=== PATIENT | female | born 1955 | race Caucasian/White ===

== ENCOUNTER 2021-12-08 02:35 | Emergency (ER) | payer OTHER ==
[2021-12-08 04:14] LABS: Absolute Lymphocytes (CBC) 1.1 K/uL (0.7-4.9); Hematocrit 39.1 % (36.0-45.0); MPV 7.6 fL (7.6-11.3); RBC Red Blood Cell Count 3.95 M/uL (3.86-4.86)
[2021-12-08] MEDS ORDERED: LEVALBUTEROL 1.25 MG/3 ML NEB ONE (04:16)
[2021-12-08 04:21] LABS: Urine Blood Negative (Negative); Urine Glucose Negative (Negative); Urine Protein Negative (Negative); Urine Specific Gravity <=1.005 (1.005-1.030)
[2021-12-08] MEDS ORDERED: cloNIDine HCL 0.1 MG TAB ONE (04:25)
[2021-12-08 04:30] LABS: Potassium 4.1 mmol/L (3.5-5.1); Troponin High Sensitivity 20.4 pg/mL (<58.9)
[2021-12-08 04:52] LABS: Urine Bacteria <20 /HPF (<20); Urine RBC <5 /HPF (NONE SEEN); Urine Urothelial Cells <5 /HPF (NONE SEEN)
--- NOTE | 2021-12-08 06:20 | EDPHYS ---
Physician Documentation [facility] Name: Hillary Simms Age: 65 yrs Sex: Female : 1955 Arrival Date: 12/08/2021 Time: 02:38 Bed 5 Private MD: ED Physician Juan Carlos Gomez HPI: 12/08 03:50 This 65 yrs old Female presents to ER via Ambulatory with complaints of headache, rn Breathing Difficulty, COPD Exacerbation. 03:52 Pt reports headache, malaise, chest pain, cough, sob for 3 days. Reports just got rn insurance back and has not been on her inhalers for 5 years. No fever. + productive cough. No abd pain. No vomiting. + diarrhea. No sick contacts. . Onset: The symptoms/episode began/occurred 3 day(s) ago. Severity of symptoms: At their worst the symptoms were mild in the emergency department the symptoms are unchanged. It is unknown whether or not the patient has had similar symptoms in the past. The patient has not recently seen a physician. Historical: - Allergies: 03:03 PENICILLINS; lp1 - Home Meds: 03:03 None [Active]; lp1 - PMHx: 03:03 GI Bleed; Hypertension; COPD; lp1 - PSHx: 03:03 Tubal Ligation; lp1 - Social history:: Smoking status: Patient reports the use of cigarette tobacco products, denies chronic smoking, but will smoke occasionally. - Family history:: not pertinent. - Hospitalizations: : No recent hospitalization is reported. ROS: 03:52 Constitutional: Negative for fever, chills, and weight loss, Eyes: Negative for injury, rn pain, redness, and discharge, Neck: Negative for injury, pain, and swelling, Cardiovascular: Negative for palpitations, and edema, Respiratory: + sob and cough Abdomen/GI: Negative for abdominal pain, vomiting, and constipation, Back: Negative for injury and pain, : + "warm urine" MS/Extremity: Negative for injury and deformity, Skin: Negative for injury, rash, and discoloration, Neuro: Negative for focal weakness, numbness, tingling, and seizure. Exam: 03:52 Constitutional: This is a well developed, well nourished patient who is awake, alert, rn and in no acute distress. Head/Face: Normocephalic, atraumatic. Eyes: Periorbital areas with no swelling, redness, or edema. Cardiovascular: Regular rate and rhythm. No pulse deficits. Respiratory: No increased work of breathing, no retractions or nasal flaring. Abdomen/GI: Soft, non-tender Skin: Warm, dry with normal turgor. Normal color with no rashes, no lesions, and no evidence of cellulitis. MS/ Extremity: Pulses equal, no cyanosis. Neurovascular intact. Full, normal range of motion. Equal circumference. Neuro: Awake and alert, GCS 15, oriented to person, place, time, and situation. Cranial nerves II-XII grossly intact. Motor strength 5/5 in all extremities. Sensory grossly intact. Cerebellar exam normal. Normal gait. Vital Signs: 03:01 BP 185 / 127 LA; Pulse 94; Resp 18; Temp 98.1(O); Pulse Ox 99% on R/A; Weight 44.45 kg lp1 (R); Height 5 ft. 4 in. (162.56 cm); Pain 7/10; 03:03 BP 190 / 125 RA; lp1 04:00 BP 184 / 127; Pulse 81; Resp 18 S; Pulse Ox 100% on R/A; lg3 04:25 BP 175 / 118; Pulse 81; Resp 17 S; Pulse Ox 99% on R/A; lg3 05:06 BP 116 / 64; Pulse 63; Resp 17 S; Pulse Ox 100% on R/A; lg3 06:30 BP 122 / 78; Pulse 73; Resp 18 S; Pulse Ox 100% on R/A; lg3 03:01 Body Mass Index 16.82 (44.45 kg, 162.56 cm) lp1 MDM: 02:45 Patient medically screened. rn 06:17 Differential Diagnosis viral syndrome, HTN, headache, COPD exacerbation. Data reviewed: rn vital signs, nurses notes, lab test result(s), EKG, radiologic studies, CT scan, plain films, and as a result, I will discharge patient. Counseling: I had a detailed discussion with the patient and/or guardian regarding: the historical points, exam findings, and any diagnostic results supporting the discharge/admit diagnosis, lab results, radiology results, the need for outpatient follow up, to return to the emergency department if symptoms worsen or persist or if there are any questions or concerns that arise at home. Response to treatment: the patient's symptoms have markedly improved after treatment, and as a result, I will discharge patient. Special discussion: I discussed with the patient/guardian in detail that at this point there is no indication for admission to the hospital. It is understood, however, that if the symptoms persist or worsen the patient needs to return immediately for re-evaluation. Based on the history and exam findings, there is no indication for further emergent testing or inpatient evaluation. I discussed with the patient/guardian the need to see the primary care provider for further evaluation of the symptoms. ED course: NO acute findings on CT head/aorta, CXR clear, COVID/FLu neg, improved BP, ambulatory to bathroom on her own and normal neuro exam. Will dc home with PCP f/u for BP management. No findings to suggest end-organ damage. Will refill COPD medication and direct her to take BP log.. 12/08 03:19 Order name: CBC with Diff; Complete Time: 04:30 rn 12/08 03:19 Order name: Basic Metabolic Panel; Complete Time: 04:30 rn 12/08 03:19 Order name: D-Dimer; Complete Time: 04:30 rn 12/08 03:19 Order name: Troponin High Sensitivity; Complete Time: 04:30 rn 12/08 03:19 Order name: Flu; Complete Time: 05:13 rn 12/08 03:19 Order name: CT Head Brain wo Cont rn 12/08 03:19 Order name: XRAY Chest (1 view) rn 12/08 03:19 Order name: Urine Microscopic Only; Complete Time: 05:13 rn 12/08 04:11 Order name: SARS-COV-2 RT PCR; Complete Time: 05:13 EDSD 12/08 04:21 Order name: Urine Dipstick-Ancillary; Complete Time: 04:30 EDMS 12/08 04:31 Order name: CT Aorta for Dissection rn 12/08 03:19 Order name: IV Start; Complete Time: 03:59 rn 12/08 03:19 Order name: EKG; Complete Time: 03:20 rn 12/08 03:19 Order name: EKG - Nurse/Tech; Complete Time: 03:59 rn 12/08 03:19 Order name: Cardiac monitoring; Complete Time: 03:59 rn 12/08 03:19 Order name: O2 Sat Monitoring; Complete Time: 03:59 rn 12/08 03:19 Order name: Urine Dipstick-Ancillary (obtain specimen); Complete Time: 04:22 rn Administered Medications: 04:15 Drug: Xopenex (levalbuterol) 1.25 mg Route: Inhalation; al4 04:25 Drug: cloNIDine 0.1 mg Route: PO; lg3 04:25 Follow up: Response: No adverse reaction lg3 Disposition Summary: 12/08/21 06:20 Discharge Ordered Location: Home rn Problem: an acute exacerbation rn Symptoms: have improved rn Condition: Stable rn Diagnosis - COPD/ Chronic obstructive pulmonary disease with (acute) exacerbation rn - Essential (primary) hypertension rn - Headache rn Followup: rn - With: Private Physician - When: As needed - Reason: Recheck today's complaints, Re-evaluation by your physician Discharge Instructions: - Discharge Summary Sheet rn - General Headache Without Cause rn - Hypertension, Adult rn - Chronic Obstructive Pulmonary Disease Exacerbation rn Forms: - Medication Reconciliation Form rn - Thank You Letter rn - Antibiotic international guest coordinator - Prescription Opioid Use rn Prescriptions: - albuterol sulfate 90 mcg/actuation Inhalation HFA aerosol inhaler - inhale 2 puff by INHALATION route every 4-6 hours; 1 Pump; Refills: 0, Product rn Selection Permitted - Prednisone 20 mg Oral Tablet - take 3 tablets by ORAL route once daily for 5 days; 15 tablet; Refills: 0, rn Product Selection Permitted Signatures: Dispatcher [employer] EDMS Juan Carlos Gomez MD MD rn Pena, Laura RN RN lp1 Sirena De Guzman, RN RN lg3 Vishnu Tate4 Corrections: (The following items were deleted from the chart) 04:04 03:19 SARS-COV-2 RT PCR+MOL.LAB.BRZ ordered. EDMS EDMS 04:04 03:20 Influenza Screen (A \\T\\ B)+BA.LAB.BRZ ordered. EDMS EDMS 04:11 04:04 COVID-19/FLU A+B ordered. EDMS EDMS
--- NOTE | 2021-12-08 06:20 | ER ---
Nurse's Notes [facility] Name: Hillary Simms Age: 65 yrs Sex: Female : 1955 Arrival Date: 12/08/2021 Time: 02:38 Bed 5 Private MD: Diagnosis: COPD/ Chronic obstructive pulmonary disease with (acute) exacerbation;Essential (primary) hypertension;Headache Presentation: 12/08 03:01 Chief complaint: Patient states: "I have COPD and I have been short of breath and I lp1 haven't been able to hold anything down for 3 days and I'm having some chest pain, and I think I may need a blood transfusion"; Reports unable to have inhaler for COPD due to financial reasons. Coronavirus screen: At this time, the client does not indicate any symptoms associated with coronavirus-19. Ebola Screen: No symptoms or risks identified at this time. Initial Sepsis Screen: Does the patient meet any 2 criteria? No. Patient's initial sepsis screen is negative. Does the patient have a suspected source of infection? No. Patient's initial sepsis screen is negative. Risk Assessment: Do you want to hurt yourself or someone else? Patient reports no desire to harm self or others. Onset of symptoms was December 08, 2021. 03:01 Method Of Arrival: Ambulatory lp1 03:01 Acuity: PREETI 2 lp1 Triage Assessment: 06:32 Respiratory: the patient has mild shortness of breath. lg3 Historical: - Allergies: 03:03 PENICILLINS; lp1 - Home Meds: 03:03 None [Active]; lp1 - PMHx: 03:03 GI Bleed; Hypertension; COPD; lp1 - PSHx: 03:03 Tubal Ligation; lp1 - Social history:: Smoking status: Patient reports the use of cigarette tobacco products, denies chronic smoking, but will smoke occasionally. - Family history:: not pertinent. - Hospitalizations: : No recent hospitalization is reported. Screenin:06 Abuse screen: Denies threats or abuse. Denies injuries from another. Nutritional lp1 screening: No deficits noted. Tuberculosis screening: No symptoms or risk factors identified. Fall Risk None identified. Assessment: 04:14 General: Appears in no apparent distress. comfortable, Behavior is cooperative, lg3 anxious. Pain: Denies pain. Neuro: No deficits noted. Garza Agitation-Sedation Scale (RASS): 0 - Alert and Calm Level of Consciousness is awake, alert, obeys commands, Oriented to person, place, time, situation. Cardiovascular: No deficits noted. Reports nausea, shortness of breath. Cardiovascular: Denies chest pain. Respiratory: No deficits noted. Reports shortness of breath Airway is patent Trachea midline Respiratory effort is even, unlabored, Respiratory pattern is regular, symmetrical, Breath sounds are clear bilaterally. GI: Reports nausea. : No deficits noted. No signs and/or symptoms were reported regarding the genitourinary system. EENT: No deficits noted. No signs and/or symptoms were reported regarding the EENT system. Derm: No deficits noted. No signs and/or symptoms reported regarding the dermatologic system. Skin is intact, is healthy with good turgor, Skin is dry, Skin is pink, warm \\T\\ dry. Musculoskeletal: No deficits noted. No signs and/or symptoms reported regarding the musculoskeletal system. Circulation, motion, and sensation intact. Capillary refill < 3 seconds, Range of motion: intact in all extremities. 05:06 Reassessment: Patient appears in no apparent distress at this time. No changes from lg3 previously documented assessment. Patient and/or family updated on plan of care and expected duration. Pain level reassessed. Patient is alert, oriented x 3, equal unlabored respirations, skin warm/dry/pink. 06:30 Reassessment: Patient appears in no apparent distress at this time. No changes from lg3 previously documented assessment. Patient and/or family updated on plan of care and expected duration. Pain level reassessed. Patient is alert, oriented x 3, equal unlabored respirations, skin warm/dry/pink. Patient denies pain at this time. Patient states feeling better. Patient states symptoms have improved. 06:31 Cardiovascular: Rhythm is sinus rhythm. lg3 Vital Signs: 03:01 BP 185 / 127 LA; Pulse 94; Resp 18; Temp 98.1(O); Pulse Ox 99% on R/A; Weight 44.45 kg lp1 (R); Height 5 ft. 4 in. (162.56 cm); Pain 7/10; 03:03 BP 190 / 125 RA; lp1 04:00 BP 184 / 127; Pulse 81; Resp 18 S; Pulse Ox 100% on R/A; lg3 04:25 BP 175 / 118; Pulse 81; Resp 17 S; Pulse Ox 99% on R/A; lg3 05:06 BP 116 / 64; Pulse 63; Resp 17 S; Pulse Ox 100% on R/A; lg3 06:30 BP 122 / 78; Pulse 73; Resp 18 S; Pulse Ox 100% on R/A; lg3 03:01 Body Mass Index 16.82 (44.45 kg, 162.56 cm) lp1 ED Course: 02:38 Patient arrived in ED. bp1 02:45 Juan Carlos Gomez MD is Attending Physician. rn 02:54 Sirena De Guzman, LM is Primary Nurse. lg3 03:03 Triage completed. lp1 03:03 Arm band placed on. lp1 03:36 XRAY Chest (1 view) In Process Unspecified. EDMS 03:40 CT Head Brain wo Cont In Process Unspecified. EDMS 03:59 Troponin High Sensitivity Sent. lg3 03:59 D-Dimer Sent. lg3 03:59 Basic Metabolic Panel Sent. lg3 03:59 CBC with Diff Sent. lg3 03:59 Inserted saline lock: 20 gauge in right antecubital area, using aseptic technique. lg3 Blood collected. 04:14 Patient has correct armband on for positive identification. Placed in gown. Bed in low lg3 position. Call light in reach. Side rails up X 1. Client placed on continuous cardiac and pulse oximetry monitoring. NIBP monitoring applied. rehab services aide on. Door closed. Noise minimized. Warm blanket given. 04:22 Urine Microscopic Only Sent. al4 04:53 CT Aorta for Dissection In Process Unspecified. EDMS 06:31 No provider procedures requiring assistance completed. IV discontinued, intact, lg3 bleeding controlled, No redness/swelling at site. Pressure dressing applied. Administered Medications: 04:15 Drug: Xopenex (levalbuterol) 1.25 mg Route: Inhalation; al4 04:25 Drug: cloNIDine 0.1 mg Route: PO; lg3 04:25 Follow up: Response: No adverse reaction lg3 Outcome: 06:20 Discharge ordered by . rn 06:31 Discharged to home ambulatory. lg3 06:31 Condition: stable 06:31 Discharge instructions given to patient, Instructed on discharge instructions, medication usage, Demonstrated understanding of instructions, medications, Prescriptions given X 2. 06:32 Patient left the ED. lg3 Signatures: Dispatcher [employer] EDMS Juan Carlos Gomez MD MD rn Pena, Laura, RN RN lp1 Sirena De Guzman RN RN lg3 Vicki Barrios Alexis al4 Corrections: (The following items were deleted from the chart) 04:04 03:59 Influenza Screen (A \\T\\ B)+BA.LAB.BRZ drawn and sent. lg3 EDMS 04:04 03:59 SARS-COV-2 RT PCR+MOL.LAB.BRZ drawn and sent. lg3 EDMS
[2021-12-08 06:37] VITALS: TEMP 98.1
[2021-12-08 06:42] VITALS: O2SAT 100
[2021-12-08 06:44] VITALS: BP 122/78
--- NOTE | 2021-12-08 10:18 | EKG ---
Test Date: 2021-12-08 Test Time: 03:50:03 Metallography Teacher: KOKI MEASUREMENT RESULTS: Intervals: Rate: 81 SC: 166 QRSD: 88 QT: 432 QTc: 501 [place]: P: 42 SC: 166 QRS: 31 T: 75 INTERPRETIVE STATEMENTS: Normal sinus rhythm Possible Left atrial enlargement Left ventricular hypertrophy Nonspecific T wave abnormality Prolonged QT Abnormal ECG Compared to ECG 01/20/2014 07:53:11 Left ventricular hypertrophy now present T-wave abnormality now present Prolonged QT interval now present Electronically Signed On 12-08-21 10:17:22 CDT by Matty Robertson
--- NOTE | 2021-12-08 10:18 | EKG ---
Test Date: 2021-12-08 Test Time: 03:51:11 Coffee Roaster: KOKI MEASUREMENT RESULTS: Intervals: Rate: 79 MI: 170 QRSD: 88 QT: 434 QTc: 497 [place]: P: 42 MI: 170 QRS: 25 T: 80 INTERPRETIVE STATEMENTS: Normal sinus rhythm Voltage criteria for left ventricular hypertrophy Prolonged QT Abnormal ECG Compared to ECG 12/08/2021 03:50:03 T-wave abnormality no longer present Electronically Signed On 12-08-21 10:17:21 CDT by Matty Robertson
--- NOTE | 2021-12-08 15:15 | RAD REPORT ---
EXAM DESCRIPTION: CT - Head Brain Wo Cont - 12/08/2021 6:32 am CLINICAL HISTORY: Headache, new or worsening COMPARISON: None. TECHNIQUE: CT HEAD WITHOUT IV CONTRAST on 12/08/2021 3:19 AM CDT This exam was performed according to our departmental dose-optimization program, which includes autom ated exposure control, adjustment of the mA and/or kV according to patient size and/or use of iterati ve reconstruction technique. FINDINGS: There is no acute hemorrhage, mass effect or midline shift. Trevizo-white differentiation is preserved. There is no hydrocephalus. There is no significant volume loss for age. The calvarium is intact. Orbits and globes are unremarkable. The paranasal sinuses are clear. Mastoid air cells are clear. IMPRESSION: No acute intracranial findings. Electronically signed by: Ruel Johnson MD 12/08/2021 3:59 AM CDT Due to temporary technical issues with the PACS/Fluency reporting system, reports are being signed by the in house radiologists without review as a courtesy to insure prompt reporting. The interpreting radiologist is fully responsible for the content of the report.
--- NOTE | 2021-12-08 15:16 | RAD REPORT ---
EXAM DESCRIPTION: RAD - Chest Single View - 12/08/2021 3:34 am CLINICAL HISTORY: Cough COMPARISON: None. TECHNIQUE: XR CHEST 1 VIEW 12/08/2021 3:19 AM CDT FINDINGS: The heart is mildly enlarged. Lungs are clear without consolidation, atelectasis, mass or edema. There is no pleural effusion. There is no pneumothorax. There are no acute osseous findings. IMPRESSION: Clear lungs. Electronically signed by: Ruel Johnson MD 12/08/2021 3:56 AM CDT Due to temporary technical issues with the PACS/Fluency reporting system, reports are being signed by the in house radiologists without review as a courtesy to insure prompt reporting. The interpreting radiologist is fully responsible for the content of the report.
--- NOTE | 2021-12-08 15:18 | RAD REPORT ---
EXAM DESCRIPTION: CT - Angio Aorta For Dissection - 12/08/2021 6:31 am CLINICAL HISTORY: Chest pain, extreme HTN COMPARISON: None. TECHNIQUE: CT CHEST ABDOMEN PELVIS ANGIOGRAPHY WITH IV CONTRAST on 12/08/2021 4:31 AM CDT. MIPS recon structions were generated. This exam was performed according to our departmental dose-optimization program, which includes autom ated exposure control, adjustment of the mA and/or kV according to patient size and/or use of iterati ve reconstruction technique. FINDINGS: Vascular: The midascending thoracic aorta is dilated at 4.4 cm. There is no dissection. Pu lmonary arteries are poorly opacified with no large central filling defects. Abdominal aorta is moder ately atherosclerotic without aneurysm. Pelvic arteries are patent without aneurysm or occlusion. Chest: The heart is normal in size. There is no pericardial effusion. Intrathoracic lymph nodes are n ot enlarged. There is no pleural effusion, pleural thickening or pneumothorax. Central airways are patent. There i s a 2 mm right apical pulmonary nodule. There is mild upper lung centrilobular emphysema. Abdomen: The liver is normal in appearance. There is no biliary dilatation. Gallbladder is normal in appearance. The pancreas and spleen are normal in appearance. Adrenal glands are normal. Kidneys are mildly atrophic. There is no free air. There is no retroperitoneal adenopathy. Pelvis: There is no bowel obstruction. Urinary bladder is unremarkable. There is no free fluid. Uteru s is normal in size. Appendix is not clearly seen. Skeleton: There are no acute osseous findings. No suspicious bony lesions. IMPRESSION: Mildly dilated mid ascending thoracic aorta without dissection. No large or central pulmonary embolus. Emphysema. 2 mm right solid pulmonary nodule within the upper lobe. A non-contrast Chest CT at 12 months is opti onal. If performed and the nodule is stable at 12 months, no further follow-up is recommended. These guidelines do not apply to immunocompromised patients and patients with cancer. Follow up in pa tients with significant comorbidities as clinically warranted. For lung cancer screening, adhere to L rosanne-RADS guidelines. Reference: Radiology. 2017; 284(1):228-43. Electronically signed by: Ruel Johnson MD 12/08/2021 5:56 AM CDT Due to temporary technical issues with the PACS/Fluency reporting system, reports are being signed by the in house radiologists without review as a courtesy to insure prompt reporting. The interpreting radiologist is fully responsible for the content of the report.
== END 2021-12-08 06:32 | disposition home or self-care (01) ==
LOC: ER 02:35
DX: J44.1 Chronic obstructive pulmonary disease with (acute) exacerbation (principal); I10 Essential (primary) hypertension; F17.210 Nicotine dependence, cigarettes, uncomplicated; Z20.822 Contact with and (suspected) exposure to COVID-19; Z88.0 Allergy status to penicillin
CPT/HCPCS: 93005 ×2; 85025; 80048; 36415; 85379; 84484; 87804 ×2; 70450; 71275; 74175; 71045; U0003; Q9967; 81003; 81015; 99285

== ENCOUNTER → 2023-07-19 | Emergency (ER) | payer OTHER ==
[~2023-07-19] MED LIST: cloNIDine HCL 0.1 MG TAB ONE
--- OUTSIDE RECORDS SUMMARY | 2023-07-19 19:12 | XMS REPORT | Continuity of Care Document ---
Author Name Unknown Address [address] [place] [address] [facility] thconnect Address [address] [place] [address] Care Team Providers Care Color Adviser Name Role Phone TRE MADDOX Attending Clinician Unavailab le Payers Payer Name Policy Type Policy Number Effective Date Expirati on Date Source [facility] MEDICAID ST[employer] [facility] [id number] 2021 00:00:00 Encounters Start Date/Time End Date/Time Encounter Type Admission Type Attending Clinicians Care Facility Care Department Encounter ID Source 2023-08-05 15:00:00 2023-08-05 15:00:00 Outpatient TRE MADDOX [facility] [id number] [facility]
[2023-07-19 20:16] LABS: Absolute Lymphocytes (CBC) 0.7 K/uL (0.7-4.9); Hematocrit 26.9 % (36.0-45.0); Lymphocytes % 8.3 % (15.3-44.8); MCV 97.6 fL (80-100); MPV 7.7 fL (7.6-11.3); Platelets 353 thou/uL (152-406); RBC Red Blood Cell Count 2.76 M/uL (3.86-4.86)
[2023-07-19 20:21] LABS: Protime INR 1.06
[2023-07-19 20:40] LABS: Bilirubin Direct 0.1 mg/dL (0-0.2); Bilirubin Indirect, Calculated 0.2 mg/dL (0.2-0.8); Bilirubin Total 0.3 mg/dL (0.2-1.0); Magnesium 2.2 mg/dL (1.6-2.4); Potassium 4.3 mEq/L (3.5-5.1); Protein, Total 7.4 g/dL (6.4-8.2); Troponin High Sensitivity 7.9 pg/mL (<58.9)
--- NOTE | 2023-07-19 21:17 | RAD REPORT ---
EXAM DESCRIPTION: CT - CTHCSPWOC - 07/19/2023 9:04 pm CLINICAL HISTORY: Trauma, head and neck injury. TRAUMA COMPARISON: Facial Bones W/ Mpr dated 07/19/2023; Head Brain Wo Cont dated 12/08/2021 TECHNIQUE: Axial 5 mm thick images of the head were obtained. Axial 2 mm thick images of the cervical spine were obtained with sagittal and coronal reconstruction images generated and reviewed. All CT scans are performed using dose optimization technique as appropriate and may include automated exposure control or mA/KV adjustment according to patient size. FINDINGS: CT HEAD WITHOUT CONTRAST: No acute hemorrhage, hydrocephalus or extra-axial collection is identified.There is a large area of i ntermediate diminished density seen in the left temporal lobe likely representing subacute infarct. M ild generalized brain atrophy is present. 2 mm [id number] midline shift is identified. The paranasal sinuses and mastoids are clear.Mild vertebral atherosclerosis.The calvarium is intact. CT CERVICAL SPINE WITHOUT CONTRAST: No fracture or subluxation.Mild lower cervical degenerative changes.No prevertebral soft tissues swel ling is identified. Mild bilateral carotid atherosclerosis. IMPRESSION: Large area of diminished density is seen the left temporal lobe likely related to subacu te CVA.MRI the brain recommended for further evaluation. No acute hemorrhage or hydrocephalus apparent. No acute cervical spine finding.
--- NOTE | 2023-07-19 21:22 | RAD REPORT ---
EXAM DESCRIPTION: CT - CTFB CLINICAL HISTORY: TRAUMA Fall, trauma, pain COMPARISON: No comparisons TECHNIQUE: Axial 2 mm thick images of the face were obtained with sagittal and coronal reconstructio n images. All CT scans are performed using dose optimization technique as appropriate and may include automated exposure control or mA/KV adjustment according to patient size. FINDINGS: No acute facial bone fracture is seen.The mandible is intact. Moderate soft tissue swellin g is seen anterior to the mandible. The globes and orbital contents are grossly unremarkable.The paranasal sinuses and mastoids are clear . IMPRESSION: Negative for facial bone fracture.
--- NOTE | 2023-07-20 00:30 | ER ---
Nurse's Notes [facility] Name: Hillary Simms Age: 67 yrs Sex: Female : 1955 Arrival Date: 07/19/2023 Time: 19:08 Bed 5 Private MD: Diagnosis: Fall from non-moving wheelchair;Unspecified injury of head, initial encounter;Facial Laceration/ Laceration without foreign body of cheek and temporomandibular area Presentation: 07/19 19:29 Chief complaint: EMS states: Unwitnessed fall. Pt reported to be found down in room by rs5 facility staff. Pt found w/ laceration to her chin. 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 Pt is alert and oriented to her baseline per EMS. Care prior to arrival: None. Mechanism of Injury: Fall from standing position. Trauma event details: Injury occurred in the [facility], Injury occurred: Nursing Facility Injury occurred: July 19, 2023 Injury occurred at: 18:30. 19:29 Acuity: PREETI 2 rs5 19:29 Method Of Arrival: EMS: [facility]5 07/20 00:40 Coronavirus screen: Vaccine status:. Ebola Screen: Patient negative for fever greater la4 than or equal to 101.5 degrees Fahrenheit, and additional compatible Ebola Virus Disease symptoms Patient denies exposure to infectious person. Patient denies travel to an Ebola-affected area in the 21 days before illness onset. No symptoms or risks identified at this time. Initial Sepsis Screen: Does the patient meet any 2 criteria? No. Patient's initial sepsis screen is negative. Does the patient have a suspected source of infection? No. Patient's initial sepsis screen is negative. Risk Assessment: Do you want to hurt yourself or someone else? Patient reports no desire to harm self or others. Onset of symptoms was July 19, 2023. Trauma Activation: Physician: ED Physician; Name: Dr. Terrell Ocampo; Notified At: 19:32; Arrived At: Physician: General Surgeon; Name: ; Notified At: 19:32; Arrived At: Physician: Radiology; Name: ; Notified At: 19:32; Arrived At: Physician: Respiratory; Name: ; Notified At: 19:32; Arrived At: Physician: Lab; Name: ; Notified At: 19:32; Arrived At: Historical: - Allergies: 00:35 PENICILLINS; la4 - PMHx: 00:35 COPD; GI Bleed; Hypertension; la4 - PSHx: 00:35 tubal ligation; la4 - Immunization history: Last tetanus immunization: unknown. - Social history:: Smoking status: Patient denies any tobacco usage or history of. Screenin/19 19:29 Abuse screen: Denies threats or abuse. Denies injuries from another. Tuberculosis rs5 screening: No symptoms or risk factors identified. 07/20 00:35 [facility] ED Fall Risk Assessment (Adult) History of falling in the last 3 months, la4 including since admission Yes- single mechanical fall (1 pt) Confusion or Disorientation No (0 pts) Intoxicated or Sedated No (0 pts) Impaired Gait Yes (1 pt) Mobility Assist Device Used Yes (1 pt) Altered Elimination Yes (1 pt) Score/Fall Risk Level 3 or more points = High Risk Oriented to surroundings, Maintained a safe environment, Provided non-skid footwear, Hourly rounding (assess needs \T\ fall precautionary measures) done, Implemented a Fall Risk Plan of Care. Nutritional screening: No deficits noted. Primary Survey: 07/19 19:29 NO uncontrolled hemorrhage observed. A: The client is awake and alert. The airway is rs5 patent. The client is alert. Airway: patent, Oral cavity: clear, gag reflex present, Trachea midline. Breathing/Chest: Spontaneous respiratory effort, equal unlabored respirations, breath sounds clear bilaterally, regular pattern, symmetrical chest rise and fall. Respiratory effort: spontaneous, unlabored, Breath sounds: clear, bilaterally. Respiratory pattern: regular, Chest inspection: symmetrical rise and fall of the chest. Circulation: No external hemorrhage present. Regular and strong central pulse, skin warm/dry/normal color. Circulation: laceration to chin bleeding controlled by EMS prior to arrival to ED w/ gauze and tape. Disability Pupils are equal, round, reactive to light and accommodation. Disability Client is alert. Exposure/Environment: All clothing and personal items were removed. Forensic evidence collection is not deemed to be indicated at this time. Items placed in patient belonging bag. There is no evidence of uncontrolled external bleeding. No obvious injuries are noted at this time. A warming method has been applied: A warm blanket has been provided to the patient. 07/20 00:38 Reassessment Alertness and Airway: Awake and alert. The airway is patent. Breathing: la4 Spontaneous respiratory effort, equal unlabored respirations, breath sounds clear bilaterally, regular pattern with symmetrical chest rise and fall. Respiratory effort Spontaneous Unlabored Breath sounds Clear Respiratory pattern Regular Chest inspection Symmetrical Circulation: No external hemorrhage noted. Regular and strong central pulse, skin warm/dry/normal color. Heart rhythm Sinus rhythm Heart tones Present Pulses Palpable Color [place] Temperature Warm Dry Disability: Pupils Pupils are equal, round, reactive to light and accomodation. Alert. Assessment: 07/19 19:29 General: Appears in no apparent distress. Behavior is calm, cooperative, appropriate rs5 for age. Pain: Denies pain. Neuro: Garza Agitation-Sedation Scale (RASS): 0 - Alert and Calm Level of Consciousness is awake, alert, obeys commands, Oriented to person, place, situation. Cardiovascular: No deficits noted. Respiratory: No deficits noted. GI:. 19:29 Derm: Wound noted Wound is laceration to the right of chin sustained during fall. la4 07/20 00:33 Reassessment: Patient appears in no apparent distress at this time. No changes from la4 previously documented assessment. Report called to pt nursing facility. Transportation to be arranged by facility. Will call with ETA of [facility]. Vital Signs: 07/19 19:15 BP 155 / 123; Pulse 107; Resp 20; Pulse Ox 90% ; la4 19:19 BP 149 / 102; Pulse 81; Pulse Ox 96% ; la4 19:29 BP 155 / 123; Pulse 91; Resp 20; Temp 97.5; Pulse Ox 100% ; Weight 54.43 kg; Pain 0/10; rs5 20:00 BP 166 / 116; Pulse 85; Resp 18; Pulse Ox 99% ; la4 21:05 BP 175 / 113; Pulse 83; Resp 20; Pulse Ox 97% on R/A; la4 22:20 BP 168 / 114; Pulse 89; Resp 16; Pulse Ox 98% ; ls5 23:00 BP 169 / 116; Pulse 88; Resp 18; Pulse Ox 99% ; la4 23:30 BP 158 / 107; Pulse 84; Resp 20; Pulse Ox 99% ; la4 07/20 00:00 BP 103 / 78; Pulse 78; Resp 18; Pulse Ox 97% ; la4 19:29 Pain Scale: Adult rs5 Vitals: 00:20 Cardiac Rhythm Assessment Regular. la4 [place] Coma Score: 07/19 19:29 Eye Response: spontaneous(4). Motor Response: obeys commands(6). Verbal Response: rs5 oriented(5). Total: 15. Trauma Score (Adult): 19:29 Eye Response: spontaneous(1); Verbal Response: oriented(1); Motor Response: obeys rs5 commands(2); Systolic BP: > 89 mm Hg(4); Respiratory Rate: 10 to 29 per min(4); Timo Score: 15; Trauma Score: 12 07/20 00:20 Eye Response: spontaneous(1); Verbal Response: oriented(1); Motor Response: obeys la4 commands(2); Systolic BP: > 89 mm Hg(4); Respiratory Rate: 10 to 29 per min(4); Timo Score: 15; Trauma Score: 12 ED Course: 07/19 19:16 Patient arrived in ED. [id number] 19:26 Shirley Chinchilla FNP-C is [facility]. kb 19:26 Terrell Ocampo MD is Attending Physician. kb 19:29 Jose Reyes, LM is Primary Nurse. rs5 19:29 Patient maintains SpO2 saturation greater than 95% on room air. rs5 19:29 Patient has correct armband on for positive identification. Placed in gown. Bed in low rs5 position. Call light in reach. Side rails up X2. 19:29 Patient placed in an exam room, on a stretcher, on program director/music director. la4 19:31 Inserted saline lock: 20 gauge in right antecubital area, using aseptic technique. ls5 Blood collected. 19:33 Triage completed. rs5 21:03 CT Head C Spine In Process Unspecified. EDMS 21:03 CT Facial Bones W/O Con In Process Unspecified. EDMS 21:19 Primary Nurse role handed off by Jose Reyes, LM la4 21:19 Ary Laura, RN is Primary Nurse. la4 21:21 Attending Physician role handed off by Terrell Ocampo MD sp4 21:21 Lauro Francis MD is Attending Physician. sp4 07/20 00:35 Awaiting transportation, Awaiting: back to nursing facility. la4 00:35 No provider procedures requiring assistance completed. la4 00:35 Provided Education on: plan of care. la4 00:42 Thermoregulation: warm blanket given to patient. la4 Administered Medications: 07/19 23:22 Drug: cloNIDine PO 0.2 mg PO once Route: PO; la4 Medication: 07/20 00:35 VIS not applicable for this client. la4 Outcome: 00:30 Discharge ordered by . kb 00:32 Discharged to half-way. Report called to [facility] la4 00:32 Condition: stable 00:32 Discharge instructions given to [facility] Instructed on discharge instructions, follow up and referral plans. Demonstrated understanding of instructions, follow-up care, wound care, 00:35 Discharged to half-way. Mahin Called back with [facility] ETA of 30 minutes la4 for patient transport back to facility 00:41 Patient's length of stay in the Emergency Department was greater than 2 hours. no la4 trauma team activationPatient's length of stay extended due to 01:07 Patient left the ED. ls5 Signatures: Dispatcher [employer] EDMS Shirley Chinchilla, APPLICATION TECHNICAL DESIGNER-C APPLICATION TECHNICAL DESIGNER-Ckb Darcie Shetty [email or web address] Jose Reyes, RN RN [id number] Ricky Bonilla ls5 Lauro Francis MD MD sp4 Ary Laura RN RN la4
--- NOTE | 2023-07-20 00:30 | EDPHYS ---
Physician Documentation [facility] Name: Hillary Simms Age: 67 yrs Sex: Female : 1955 Arrival Date: 07/19/2023 Time: 19:08 Bed 5 Private MD: ED Physician Lauro Francis HPI: 07/19 21:24 This 67 yrs old Female presents to ER via EMS with complaints of Fall sp4 Injury. 22:05 Patient is a 67-year-old female who presents after a fall from wheelchair. Patient was kb found on the ground by staff with laceration to chin. Patient is at baseline neurostatus.. Historical: - Allergies: 07/20 00:35 PENICILLINS; la4 - PMHx: 00:35 COPD; GI Bleed; Hypertension; la4 - PSHx: 00:35 tubal ligation; la4 - Immunization history: Last tetanus immunization: unknown. - Social history:: Smoking status: Patient denies any tobacco usage or history of. ROS: 07/19 22:05 Constitutional: Negative for fever, chills, and weight loss, kb Skin: Positive for laceration(s), of the chin, All other systems are negative, Exam: 22:05 Constitutional: This is a well developed, well nourished patient who is awake, alert, kb and in no acute distress. ENT: Moist Mucous membranes Cardiovascular: Regular rate Respiratory: Respirations even and unlabored. No increased work of breathing. Talking in full sentences Abdomen/GI: Soft, non-tender. No distention 22:05 Skin: injury, laceration(s), the wound is approximately 1.5 cm(s), of the chin, that can be described as clean, no foreign body, linear, without bleeding, 22:05 Neuro: Exam negative for acute changes, 22:50 ECG was reviewed by the Attending Physician. kb Vital Signs: 19:15 BP 155 / 123; Pulse 107; Resp 20; Pulse Ox 90% ; la4 19:19 BP 149 / 102; Pulse 81; Pulse Ox 96% ; la4 19:29 BP 155 / 123; Pulse 91; Resp 20; Temp 97.5; Pulse Ox 100% ; Weight 54.43 kg; Pain 0/10; rs5 20:00 BP 166 / 116; Pulse 85; Resp 18; Pulse Ox 99% ; la4 21:05 BP 175 / 113; Pulse 83; Resp 20; Pulse Ox 97% on R/A; la4 22:20 BP 168 / 114; Pulse 89; Resp 16; Pulse Ox 98% ; ls5 23:00 BP 169 / 116; Pulse 88; Resp 18; Pulse Ox 99% ; la4 23:30 BP 158 / 107; Pulse 84; Resp 20; Pulse Ox 99% ; la4 07/20 00:00 BP 103 / 78; Pulse 78; Resp 18; Pulse Ox 97% ; la4 19:29 Pain Scale: Adult rs5 Aneta Coma Score: 07/19 19:29 Eye Response: spontaneous(4). Motor Response: obeys commands(6). Verbal Response: rs5 oriented(5). Total: 15. Trauma Score (Adult): 19:29 Eye Response: spontaneous(1); Verbal Response: oriented(1); Motor Response: obeys rs5 commands(2); Systolic BP: > 89 mm Hg(4); Respiratory Rate: 10 to 29 per min(4); Timo Score: 15; Trauma Score: 12 07/20 00:20 Eye Response: spontaneous(1); Verbal Response: oriented(1); Motor Response: obeys la4 commands(2); Systolic BP: > 89 mm Hg(4); Respiratory Rate: 10 to 29 per min(4); Aneta Score: 15; Trauma Score: 12 MDM: 07/19 19:26 Patient medically screened. kb 22:03 Differential diagnosis: abrasion, closed head injury, contusion, fracture, laceration. kb Data reviewed: vital signs, nurses notes. Consideration of Admission/Observation Escalation of care including admission/observation considered. admission considered for subacute infarct. Dr Francis spoke with Dr Ragsdale who recommends outpatient follow up. No need for admission at this time. Management of patient was discussed with the following: Tufting Machine Fixer: Dr Francis discussed case with Dr Ragsdale. Historians other than the Patient: EMS: [facility]. Counseling: I had a detailed discussion with the patient and/or guardian regarding the historical points, exam findings, and any diagnostic results supporting the discharge/admit diagnosis, lab results, radiology results, the need for outpatient follow up, a family practitioner, to return to the emergency department if symptoms worsen or persist or if there are any questions or concerns that arise at home. 07/20 00:29 ED course: Dr Francis recommended clonidine 0.2mg for high blood pressure. Blood kb pressure has improved, pt will be discharged back to [facility]. 00:30 ED course: Laceration to chin is well approximated and closed. No intervention needed . kb 07/19 19:46 Order name: Basic Metabolic Panel; Complete Time: 20:44 kb 07/19 19:46 Order name: CBC with Diff; Complete Time: 20:26 kb 07/19 19:46 Order name: Hepatic Function; Complete Time: 20:44 kb 07/19 19:46 Order name: Magnesium; Complete Time: 20:44 kb 07/19 19:46 Order name: Protime (+inr); Complete Time: 20:26 kb 07/19 19:46 Order name: Ptt, Activated; Complete Time: 20:26 kb 07/19 19:46 Order name: Troponin High Sensitivity; Complete Time: 20:44 kb 07/19 19:43 Order name: CT Head C Spine; Complete Time: 21:18 kb 07/19 19:43 Order name: CT Facial Bones W/O Con; Complete Time: 21:25 kb 07/19 19:46 Order name: EKG; Complete Time: 19:47 kb 07/19 19:46 Order name: Cardiac monitoring; Complete Time: 19:55 kb 07/19 19:46 Order name: EKG - Nurse/Tech; Complete Time: 21:42 kb 07/19 19:46 Order name: IV Saline Lock; Complete Time: 19:55 kb 07/19 19:46 Order name: Labs collected and sent; Complete Time: 19:55 kb 07/19 19:46 Order name: NPO; Complete Time: 21:18 kb 07/19 19:46 Order name: O2 Per Protocol; Complete Time: 19:55 kb 07/19 19:46 Order name: O2 Sat Monitoring; Complete Time: 19:55 kb 07/19 22:03 Order name: Vital Signs; Complete Time: 22:18 kb 07/19 22:07 Order name: Wound Care: clean and apply steri strips ; Complete Time: 23:22 kb 07/20 00:18 Order name: Vital Signs; Complete Time: 00:22 kb EC/19 22:50 Rate is 86 beats/min. Rhythm is regular. QRS [place] is Normal. [place] interval is normal at kb 156 msec. QRS interval is normal at 104 msec. QT interval is normal at 452 msec. Administered Medications: 23:22 Drug: cloNIDine PO 0.2 mg PO once Route: PO; la4 Disposition: 07/20 20:08 Co-signature as Attending Physician, Lauro Francis MD I agree with the assessment sp4 and plan of care. I reviewed the patient's care provided by the Advanced Practice Provider and agree with the diagnosis and treatment plan. Disposition Summary: 07/20/23 00:30 Discharge Ordered Notes: Location: Home kb Condition: Stable kb Diagnosis - Fall from non-moving wheelchair kb - Unspecified injury of head, initial encounter kb - Facial Laceration/ Laceration without foreign body of cheek and temporomandibular kb area Followup: kb - With: Emergency Department - When: As needed - Reason: Worsening of condition Followup: kb - With: Private Physician - When: 2 - 3 days - Reason: Recheck today's complaints, Continuance of care, Re-evaluation by your physician Discharge Instructions: - Discharge Summary Sheet kb - Facial Laceration, [id number] kb - Head Injury, Adult, [id number] kb Forms: - Medication Reconciliation Form kb - Thank You Letter kb - Antibiotic Education kb - Prescription Opioid Use kb - Patient Portal Instructions kb - Leadership Thank You Letter kb Signatures: Dispatcher [employer] EDShirley Madrid FNP-C STRAP CUTTER-Jose Mcdonald RN RN rs5 Lauro Francis MD MD sp4 Ary Laura RN RN la4
[2023-07-20 03:01] VITALS: TEMP 97.5
[2023-07-20 03:05] VITALS: BP 103/78; O2SAT 97
--- NOTE | 2023-07-20 12:50 | EKG ---
Test Date: 2023-07-19 Test Time: 21:49:09 Project Associate: DESIRAE MEASUREMENT RESULTS: Intervals: Rate: 87 IA: 158 QRSD: 102 QT: 382 QTc: 459 [place]: P: 35 IA: 158 QRS: 49 T: 77 INTERPRETIVE STATEMENTS: Normal sinus rhythm Septal infarct, age undetermined Abnormal ECG Compared to ECG 05/30/2022 00:49:18 Myocardial infarct finding now present Left ventricular hypertrophy no longer present Electronically Signed On 07-20-23 12:48:[address] SECURITY OFFICER by Jonah Brooks
--- NOTE | 2023-07-22 15:15 | EKG ---
Test Date: 2023-07-19 Test Time: 21:50:31 Gin Inspector: DESIRAE MEASUREMENT RESULTS: Intervals: Rate: 86 DE: 156 QRSD: 104 QT: 378 QTc: 452 [place]: P: 33 DE: 156 QRS: 56 T: 80 INTERPRETIVE STATEMENTS: Normal sinus rhythm Septal infarct, age undetermined Abnormal ECG Compared to ECG 07/19/2023 21:49:09 No significant changes Electronically Signed On 07-22-23 15:10:24 SUPERVISOR FILLING AND PACKING by Jonah Brooks
== END ==
LOC: ER 19:08
DX: S01.81XA Laceration without foreign body of other part of head, initial encounter (principal); W05.0XXA Fall from non-moving wheelchair, initial encounter; I10 Essential (primary) hypertension; J44.9 Chronic obstructive pulmonary disease, unspecified; Z88.0 Allergy status to penicillin
CPT/HCPCS: 36415; 70450; 70486; 72125; 76377; 80048; 80076; 83735; 84484; 85025; 85610; 85730; 93005; 99285

== ENCOUNTER → 2023-10-16 | Emergency (ER) | payer OTHER ==
[~2023-10-16] MED LIST changes: +KETOROLAC 30 MG/ML INJ ONE; -cloNIDine HCL 0.1 MG TAB ONE
--- OUTSIDE RECORDS SUMMARY | 2023-10-16 16:47 | XMS REPORT | Continuity of Care Document ---
Author Name Unknown Address [address] [place] [address] [facility] thconnect Address [address] [facility] [facility] [address] [place] [address] Care Team Providers Care Cable Cutter And Swager Name Role Phone TRE MADDOX Attending Clinician Unavailab YVONNE Vaughn Attending Clinician Unavailable Payers Payer Name Policy Type Policy Number Effective Date Expirati on Date Source [facility] [id number] 2021 00:00:00 2021 00:00:00 Encounters Start Date/Time End Date/Time Encounter Type Admission Type Attending Clinicians Care Facility Care Department Encounter ID Source 2023-08-05 15:00:00 2023-08-05 15:00:00 Outpatient TRE MADDOX [facility] [id number] [facility] 2023-06-13 11:00:00 2023-06-13 11:00:00 Outpatient YVONNE DEGROOT [facility] [id number] [facility]
--- NOTE | 2023-10-16 18:10 | RAD REPORT ---
[facility] DES[facility]55 [facility] CLINICAL HISTORY: COUGH COMPARISON: Chest Single View dated 05/30/2022; Chest Single View dated 12/08/2021; Chest Pa And Lat (2 Views) dated 04/11/2016; Chest Pa And Lat (2 Views) dated 04/10/2016 TECHNIQUE: Portable AP view of the chest. FINDINGS: The lungs are clear. Left basilar atelectasis. No pneumothorax or effusion. The cardiomedi astinal contours are unremarkable. IMPRESSION: No acute cardiopulmonary process.
--- NOTE | 2023-10-16 18:12 | RAD REPORT ---
EXAM DESCRIPTION: RAD - Wrist Right 2 View - 10/16/2023 5:55 pm CLINICAL HISTORY: DEFORMITY COMPARISON: No comparisons TECHNIQUE: Right wrist, 3 views. FINDINGS: No acute fracture. There is no dislocation or periosteal reaction noted. Mild degenerative changes of the intercarpal articulations. No other significant bony finding. No foreign body or othe r soft tissue abnormality. IMPRESSION: Negative right wrist examination.
--- NOTE | 2023-10-16 18:21 | RAD REPORT ---
EXAM DESCRIPTION: RAD - Pelvis - 10/16/2023 5:55 pm CLINICAL HISTORY: PAIN COMPARISON: Angio Aorta For Dissection dated 12/08/2021 TECHNIQUE: Single AP view of the pelvis. FINDINGS: The visualized pelvic ring is intact. Stable sclerotic lesion along the left intertrochant rom region, may represent a bone island or sequelae of a small bone infarct. No other suspicious oss eous lesions. Degenerative changes of the sacroiliac joints. Other pelvic joints are unremarkable. Vi sualized aspects of the abdomen and soft tissues are unremarkable. Feeding tube in place. IMPRESSION: No acute osseous abnormality of the bony pelvis.
--- NOTE | 2023-10-16 18:36 | EDPHYS ---
Physician Documentation [facility] Name: Hillary Simms Age: 67 yrs Sex: Female : 1955 Arrival Date: 10/16/2023 Time: 16:44 Bed 18 Private MD: ED Physician Thais Bruce HPI: 10/15 18:36 This 67 yrs old Female presents to ER via EMS with complaints of Fall Injury. cp3 18:36 the patient is a 67 yo with a history of stroke who had an unwitnessed fall from 3 standing. patient complains of right wrist pain. Historical: - Allergies: 16:51 PENICILLINS; kc6 - PMHx: 16:51 COPD; GI Bleed; Hypertension; Cerebrovascular accident; Anemia; Hypercholesterolemia; kc6 Alzheimer's disease; Dementia; - PSHx: 16:51 tubal ligation; gastrostomy tube; kc6 - Immunization history:: Adult Immunizations up to date. - Social history:: Smoking status: Patient denies any tobacco usage or history of. ROS: 18:36 Constitutional: Negative for fever, chills, and weight loss, Eyes: Negative for injury, cp3 pain, redness, and discharge, ENT: Negative for injury, pain, and discharge, Neck: Negative for injury, pain, and swelling, 18:36 Cardiovascular: Negative for chest pain, palpitations, and edema, Respiratory: Negative cp3 for shortness of breath, cough, wheezing, and pleuritic chest pain, Abdomen/GI: Negative for abdominal pain, nausea, vomiting, diarrhea, and constipation, Back: Negative for injury and pain, : Negative for injury, bleeding, discharge, and swelling, Skin: Negative for injury, rash, and discoloration, Neuro: Negative for headache, weakness, numbness, tingling, and seizure, Psych: Negative for depression, anxiety, suicide ideation, homicidal ideation, and hallucinations, Allergy/Immunology: Negative for hives, rash, and allergies, Endocrine: Negative for neck swelling, polydipsia, polyuria, polyphagia, and marked weight changes, Hematologic/Lymphatic: Negative for swollen nodes, abnormal bleeding, and unusual bruising, 18:36 MS/extremity: Positive for tenderness, right wrist, Exam: 18:39 Constitutional: This is a well developed, well nourished patient who is awake, alert, cp3 and in no acute distress. Chest/axilla: Normal chest wall appearance and motion. Nontender with no deformity. No lesions are appreciated. Cardiovascular: Regular rate and rhythm with a normal S1 and S2. No gallops, murmurs, or rubs. Normal PMI, no JVD. No pulse deficits. Respiratory: Lungs have equal breath sounds bilaterally, clear to auscultation and percussion. No rales, rhonchi or wheezes noted. No increased work of breathing, no retractions or nasal flaring. Abdomen/GI: Soft, non-tender, with normal bowel sounds. No distension or tympany. No guarding or rebound. No evidence of tenderness throughout. Back: No spinal tenderness. No costovertebral tenderness. Full range of motion. Skin: Warm, dry with normal turgor. Normal color with no rashes, no lesions, and no evidence of cellulitis. Neuro: Awake and alert, GCS 15, oriented to person, place, time, and situation. Cranial nerves II-XII grossly intact. Motor strength 5/5 in all extremities. Sensory grossly intact. Cerebellar exam normal. Normal gait. Psych: Awake, alert, with orientation to person, place and time. Behavior, mood, and affect are within normal limits. 18:39 Musculoskeletal/extremity: right wrist with mild tenderness to palpation. 18:39 Neuro: Orientation: no acute changes, Mentation: no acute changes, Cranial nerves: Vital Signs: 16:50 BP 144 / 95; Pulse 78; Resp 16 S; Temp 97.4(O); Pulse Ox 94% on R/A; kc6 18:13 BP 153 / 109; Pulse 76; Resp 18 S; Pulse Ox 98% on R/A; kc6 18:55 Pulse 74; Resp 18 S; Pulse Ox 98% on R/A; kc6 19:00 BP 177 / 112; Pulse 76; Resp 16 S; Pulse Ox 97% on R/A; jw7 20:00 BP 160 / 112; Pulse 77; Resp 18 S; Pulse Ox 97% on R/A; jw7 20:30 BP 159 / 117; Pulse 80; Resp 17 S; Pulse Ox 96% on R/A; jw7 MDM: 16:52 Patient medically screened. cp3 18:39 Differential diagnosis: contusion, fracture, sprain, strain. Data reviewed: vital cp3 signs, nurses notes, EMS record, radiologic studies, plain films. Consideration of Admission/Observation Escalation of care including admission/observation considered. Independent interpretation of the following test(s) in the Emergency Department X-Ray: My interpretation is right wrist, cxr, pelvis xrays - no fracture. Response to treatment: the patient's symptoms have markedly improved after treatment. 10/15 17:05 Order name: CXR XRAY; Complete Time: 18:34 cp3 10/15 17:05 Order name: Pelvis XRAY; Complete Time: 18:34 cp3 10/15 17:05 Order name: Wrist Right 2 View XRAY; Complete Time: 18:34 cp3 Administered Medications: 17:10 CANCELLED (Patient Refused): [id number] mg PO once cp3 17:15 Drug: TORadol - Ketorolac IVP 15 mg IVP once Route: IVP; Site: left wrist; kc6 18:47 Follow up: Response: No adverse reaction; Pain is decreased kc6 Disposition Summary: 10/16/23 18:35 Discharge Ordered Notes: Location: Home cp3 Condition: Stable cp3 Diagnosis - fall from standing cp3 - right wrist contusion cp3 - history of cva cp3 Followup: cp3 - With: Brian Wetzel DO - When: As needed - Reason: If symptoms return Discharge Instructions: - Discharge Summary Sheet cp3 - Wrist Pain, Adult cp3 Forms: - Medication Reconciliation Form cp3 - Thank You Letter cp3 - Antibiotic Education cp3 - Prescription Opioid Use cp3 - Patient Portal Instructions cp3 - Leadership Thank You Letter cp3 Signatures: Dispatcher [employer] Thais Porter MD MD cp3 Debby Toussaint RN RN kc6 Corrections: (The following items were deleted from the chart) 17:10 17:05 Acetaminophen PO 1000 mg PO once ordered. cp3 cp3
--- NOTE | 2023-10-16 18:36 | ER ---
Nurse's Notes [facility] Name: Hillary Simms Age: 67 yrs Sex: Female : 1955 Arrival Date: 10/16/2023 Time: 16:44 Bed 18 Private MD: Diagnosis: fall from standing;right wrist contusion;history of cva Presentation: 10/15 16:50 Chief complaint: EMS states: pt had an unwitnessed fall at [facility]. no blood kc6 thinners. BGL en route 137. Coronavirus screen: At this time, the client does not indicate any symptoms associated with coronavirus-19. Ebola Screen: No symptoms or risks identified at this time. Initial Sepsis Screen: Does the patient meet any 2 criteria? Altered Mental Status. Does the patient have a suspected source of infection? No. Patient's initial sepsis screen is negative. Risk Assessment: Do you want to hurt yourself or someone else? Patient reports no desire to harm self or others. Onset of symptoms was October 16, 2023. 16:50 Method Of Arrival: EMS: [facility] kc6 16:50 Acuity: PREETI 3 kc6 Triage Assessment: 16:51 General: Appears in no apparent distress. comfortable, slender, well groomed, well kc6 developed, Behavior is calm, cooperative, appropriate for age. Pain: Complains of pain in left arm. EENT: No signs and/or symptoms were reported regarding the EENT system. Neuro: Level of Consciousness is awake, alert, obeys commands, Oriented to person, Appropriate for age [employer] Accounting [employer] are weak on right Paralysis in right arm(s) leg(s) Gait is unsteady, Speech is slurred, Facial droop on right, Pupils are PERRLA, Numbness in right arm and right leg. Cardiovascular: Capillary refill < 3 seconds. Respiratory: Airway is patent Trachea midline Respiratory effort is even, unlabored, Respiratory pattern is regular, symmetrical. GI: No signs and/or symptoms were reported involving the gastrointestinal system. : No signs and/or symptoms were reported regarding the genitourinary system. Derm: No signs and/or symptoms reported regarding the dermatologic system. Skin is intact, is healthy with good turgor, Skin is pink, warm \T\ dry. Historical: - Allergies: 16:51 PENICILLINS; kc6 - PMHx: 16:51 COPD; GI Bleed; Hypertension; Cerebrovascular accident; Anemia; Hypercholesterolemia; kc6 Alzheimer's disease; Dementia; - PSHx: 16:51 tubal ligation; gastrostomy tube; 6 - Immunization history:: Adult Immunizations up to date. - Social history:: Smoking status: Patient denies any tobacco usage or history of. Screenin:54 [facility] ED Fall Risk Assessment (Adult) History of falling in the last 3 months, [facility] including since admission Yes- single mechanical fall (1 pt) Confusion or Disorientation Yes (5 pts) Intoxicated or Sedated No (0 pts) Impaired Gait Yes (1 pt) Mobility Assist Device Used Yes (1 pt) Altered Elimination Yes (1 pt) Score/Fall Risk Level 3 or more points = High Risk. Abuse screen: Denies threats or abuse. Denies injuries from another. Nutritional screening: No deficits noted. Tuberculosis screening: No symptoms or risk factors identified. Assessment: 16:54 Reassessment: please see triage. [facility] 17:54 Reassessment: Patient appears in no apparent distress at this time. No changes from [facility] previously documented assessment. Patient and/or family updated on plan of care and expected duration. Pain level reassessed. 18:40 Reassessment: nurse to nurse report given to LM Willoughby at [facility]. stated [facility] transport will be here in about an hour. 18:54 Reassessment: Patient appears in no apparent distress at this time. No changes from [facility] previously documented assessment. Patient and/or family updated on plan of care and expected duration. Pain level reassessed. 19:00 General: Discharge pending EMS Transportation to [facility]. jw7 19:19 General: Appears in no apparent distress. comfortable, Behavior is calm, cooperative, jw7 appropriate for age. Pain: Denies pain. Neuro: Level of Consciousness is awake, alert, obeys commands, Oriented to person. Cardiovascular: Heart tones S1 S2 present Capillary refill < 3 seconds Clubbing of nail beds is absent JVD is absent Patient's skin is warm and dry. Respiratory: Airway is patent Trachea midline Respiratory effort is even, unlabored, Respiratory pattern is regular, symmetrical, Breath sounds are clear bilaterally. GI: Abdomen is non-distended, Bowel sounds present X 4 quads. Abd is soft and non tender X 4 quads. : No deficits noted. No signs and/or symptoms were reported regarding the genitourinary system. EENT: No deficits noted. No signs and/or symptoms were reported regarding the EENT system. Derm: Skin is intact, is healthy with good turgor, Skin is dry, Skin is normal, Skin temperature is warm. Musculoskeletal: Circulation, motion, and sensation intact. Range of motion: limited in right leg and right arm. 20:20 Reassessment: Patient appears in no apparent distress at this time. No changes from jw7 previously documented assessment. Patient and/or family updated on plan of care and expected duration. Pain level reassessed. Vital Signs: 16:50 BP 144 / 95; Pulse 78; Resp 16 S; Temp 97.4(O); Pulse Ox 94% on R/A; kc6 18:13 BP 153 / 109; Pulse 76; Resp 18 S; Pulse Ox 98% on R/A; kc6 18:55 Pulse 74; Resp 18 S; Pulse Ox 98% on R/A; kc6 19:00 BP 177 / 112; Pulse 76; Resp 16 S; Pulse Ox 97% on R/A; jw7 20:00 BP 160 / 112; Pulse 77; Resp 18 S; Pulse Ox 97% on R/A; jw7 20:30 BP 159 / 117; Pulse 80; Resp 17 S; Pulse Ox 96% on R/A; jw7 ED Course: 16:50 Patient arrived in ED. kc6 16:51 Triage completed. kc6 16:51 Arm band placed on. kc6 16:52 Thais Bruce MD is Attending Physician. cp3 16:53 Maintain EMS IV. Dressing intact. Good blood return noted. Site clean \T\ dry. Gauge \T\ jean marie 6 site: 22G LWRIST. Patient maintains SpO2 saturation greater than 95% on room air. 16:54 Patient has correct armband on for positive identification. Bed in low position. Call kc6 light in reach. Side rails up X2. Client placed on continuous cardiac and pulse oximetry monitoring. NIBP monitoring applied. 17:09 Debby Toussaitn, LM is Primary Nurse. kc6 17:57 CXR XRAY In Process Unspecified. EDMS 17:57 Pelvis XRAY In Process Unspecified. EDMS 17:57 Wrist Right 2 View XRAY In Process Unspecified. EDMS 18:34 Thais Bruce MD is Referral Physician. cp3 18:34 Brian Wetzel DO is Referral Physician. cp3 18:34 Referral Physician role handed off by Thais Bruce MD cp3 18:45 Noise minimized. Lights dimmed. Warm blanket given. Pillow given. Turned to right side. kc6 Cleaned of incontinence. 19:00 Report received from LM Atkinson. jw7 19:00 Provided Education on: Use of Call Light. jw7 20:36 No provider procedures requiring assistance completed. jw7 20:59 IV discontinued, intact, bleeding controlled, No redness/swelling at site. Pressure jw7 dressing applied. Administered Medications: 17:10 CANCELLED (Patient Refused): [id number] mg PO once cp3 17:15 Drug: TORadol - Ketorolac IVP 15 mg IVP once Route: IVP; Site: left wrist; kc6 18:47 Follow up: Response: No adverse reaction; Pain is decreased kc6 Medication: 20:36 VIS not applicable for this client. jw7 Outcome: 18:35 Discharge ordered by . cp3 20:58 Discharged to intermediate. jw7 20:58 Condition: stable 20:58 Discharge instructions given to patient, intermediate, Instructed on discharge instructions, follow up and referral plans. Demonstrated understanding of instructions, follow-up care, 21:00 Patient left the ED. jw7 Signatures: Dispatcher [employer] EDUT Thais Bruce MD MD cp3 Felicita Chaney RN RN jw7 Debby Toussaint RN RN kc6 Corrections: (The following items were deleted from the chart) 18:55 18:13 Reassessment: Patient appears in no apparent distress at this time. No changes kc6 from previously documented assessment. Patient and/or family updated on plan of care and expected duration. Pain level reassessed. kc6
[2023-10-16 21:22] VITALS: BP 159/117; TEMP 97.4; O2SAT 96
== END ==
LOC: ER 16:44
DX: S60.211A Contusion of right wrist, initial encounter (principal); W18.30XA Fall on same level, unspecified, initial encounter; Z86.73 Personal history of transient ischemic attack (TIA), and cerebral infarction without residual deficits; G30.9 Alzheimer's disease, unspecified; F02.80 Dementia in other diseases classified elsewhere, unspecified severity, without behavioral disturbance, psychotic disturbance, mood disturbance, and anxiety; I10 Essential (primary) hypertension; Z88.0 Allergy status to penicillin
CPT/HCPCS: 71045; 72170; 96374; 99285

== ENCOUNTER 2024-03-08 17:26 | Inpatient (IN) | payer OTHER ==
--- OUTSIDE RECORDS SUMMARY | 2024-03-08 17:31 | XMS REPORT | Continuity of Care Document ---
Author Name Unknown Address [address] [place] [address] [address] thconnect Address [address] [place] [address]. 1 495 [place] [address] Care Team Providers Care Financial Services Technician Name Role Phone TRE MADDOX Attending Clinician Unavailab della BARNETT_HUBER_Chris_J Attending Clinician Unavailable YVONNE DEGROOT Attending Clinician Unavailable ERICKA_HUBER_Chris_J Admitting Clinician Unavailable Payers Payer Name Policy Type Policy Number Effective Date Expirati on Date Source [facility] MEDICAID STARPLUS OON [facility] [id number] 2021 00:00:00 2021 00:00:00 [facility] - DUAL ELIGIBLE (MEDICARE REPLACEMENT/ADVANT AGE - HMO) [id number] 2023 00:00:00 [place]: [id number] [employer] [id number] 2022 00:00:00 Problems Condition Name Condition Details Condition Category Status Onset Date Resolution Date Last Treatment Date Treating Clinician Comments Source Peristomal dermatitis Peristomal Dermatitis Problem Active 02-01 00:00: 00 [facility] Irritant contact dermatitis Irritant Contact Dermatitis Problem Active 02-01 00:00: 00 [facility] Mononeurop athy of upper limb Mononeurop athy of Upper Limb Problem Active 01-15 00:00: 00 [facility] Mild protein-ca jazmín malnutriti on (weight for age 75-89 percent of standard) Mild Protein-ca jazmín Malnutriti on (Weight for Age 75-89 Percent of Standard) Problem Active 01-15 00:00: 00 [facility] Contractur e of joint of right hand Contractur e of Joint of Right Hand Problem Active 5-23 00:00: 00 [facility] Diastolic dysfunctio n Diastolic Dysfunctio n Problem Active 4 00:00: 00 [facility] Liver enzymes level above reference range Liver Enzymes Level above Reference Range Problem Active 429 00:00: 00 [facility] Gastroesop hageal reflux disease Gastroesop hageal Reflux Disease Problem Active 422 00:00: 00 [facility] Chronic kidney disease stage 2 Chronic Kidney Disease Stage 2 Problem Active 2-25 00:00: 00 [facility] Perioral dermatitis Perioral Dermatitis Problem Active 218 00:00: 00 [facility] Lower limb spasticity Lower Limb Spasticity Problem Active 09-18 00:00: 00 [facility] Disorder of vitamin B12 Disorder of Vitamin B12 Problem Active 2 00:00: 00 [facility] Microcytic hypochromi c anemia Microcytic Hypochromi c Anemia Problem Active 2 00:00: 00 [facility] Severe protein-ca jazmín malnutriti on (Yoo: less than 60 percent of standard weight) Severe Protein-ca jazmín Malnutriti on (Yoo: Less than 60 Percent of Standard Weight) Problem Active 1 00:00: 00 [facility] Macrocytic anemia Macrocytic Anemia Problem Active 2022-08 00:00: 00 [facility] 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 ve Heart and Renal Disease Problem Active 2022-08 00:00: 00 [facility] Seen in fpc Seen in Long Term Problem Active 2022-08 2 00:00: 00 [facility] 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 Hemiplegia as Late Effect of Cerebrovas cular Accident Problem Active 2022-08 2 00:00: 00 [facility] Osteoarthr itis Osteoarthr itis Problem Active 2022-08 2 00:00: 00 [facility] Secondary immune deficiency disorder Secondary Immune Deficiency Disorder Problem Active 2022-08 2- 00:00: 00 [facility] Carotid artery stenosis Carotid Artery Stenosis Problem Active 2022-08 2 00:00: 00 [facility] Atheroscle rosis of aorta Atheroscle rosis of Aorta Problem Active 2022-08 2 00:00: 00 [facility] Peripheral vascular disease Peripheral Vascular Disease Problem Active 2022-08 2 00:00: 00 [facility] Nodule of lung Nodule of Lung Problem Active 2022-08 2 00:00: 00 [facility] Double incontinen ce Double Incontinen ce Problem Active 2022-08 00:00: 00 [facility] Hypercoagu lability state Hypercoagu lability State Problem Active 2022-08 00:00: 00 [facility] Cerebrovas cular disease Cerebrovas cular Disease Problem Active 2022-08 00:00: 00 [facility] 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 Aphasia as Late Effect of Cerebrovas cular Disease Problem Active 2022-08 00:00: 00 [facility] 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 Hemiplegia as Late Effect of Cerebrovas cular Accident Problem Active 2022-08 00:00: 00 [facility] Dysphagia as a late effect of cerebrovas cular accident Dysphagia as a Late Effect of Cerebrovas cular Accident Problem Active 2022-08 00:00: 00 [facility] Chronic obstructiv e pulmonary disease Chronic Obstructiv e Pulmonary Disease Problem Active 2022-08 00:00: 00 [facility] Functional gait abnormalit y Functional Gait Abnormalit y Problem Active 2022-08 00:00: 00 [facility] Gastrostom y present Gastrostom y Present Problem Active 2022-08 00:00: 00 [facility] Need for personal care assistance Need for Personal Care Assistance Problem Active 2022-08 00:00: 00 [facility] Social History Smoking Status Start Date Stop Date Source Never Smoker [facility] Medications Ordered Medication Name Filled Medication Name Start Date Stop Date Current Medication? Ordering Clinician Indication Dosage Frequency Signature (SIG) Comments Components Source lisinopril 2.5 mg tablet Take 1 tablet every day by oral route. lisinopril 2.5 mg tablet Take 1 tablet every day by oral route. 01-29 00:00: 00 No 1 Q1D lisinopril 2.5 mg tablet Take 1 tablet every day by oral route. [facility] amlodipine 10 mg tablet Take 1 tablet every day by oral route. amlodipine 10 mg tablet Take 1 tablet every day by oral route. No 1 Q1D amlodipine 10 mg tablet Take 1 tablet every day by oral route. [facility] aspirin 81 mg tablet,mark yed release Take 1 tablet every day by oral route. aspirin 81 mg tablet,mark yed release Take 1 tablet every day by oral route. No 1 Q1D aspirin 81 mg tablet,del ayed release Take 1 tablet every day by oral route. [facility] atorvastati n 80 mg tablet Take 1 tablet every day by oral route. atorvastati n 80 mg tablet Take 1 tablet every day by oral route. No atorvastat in 80 mg tablet Take 1 tablet every day by oral route. [facility] budesonide 0.5 mg/2 mL suspension for nebulizatio n Inhale 2 mL twice a day by nebulizatio n route for 30 days. budesonide 0.5 mg/2 mL suspension for nebulizatio n Inhale 2 mL twice a day by nebulizatio n route for 30 days. No budesonide 0.5 mg/2 mL suspension for nebulizati on Inhale 2 mL twice a day by nebulizati on route for 30 days. [facility] Combivent Respimat 20 mcg-100 mcg/actuati on solution for inhalation Combivent Respimat 20 mcg-100 mcg/actuati on solution for inhalation No Combivent Respimat 20 mcg-100 mcg/actuat ion solution for inhalation [facility] ferrous sulfate 220 mg (44 mg iron)/5 mL oral elixir Take 7 mL every day by oral route. ferrous sulfate 220 mg (44 mg iron)/5 mL oral elixir Take 7 mL every day by oral route. No 7mL Q1D ferrous sulfate 220 mg (44 mg iron)/5 mL oral elixir Take 7 mL every day by oral route. [facility] ipratropium 0.5 mg-albutero l 3 mg (2.5 mg base)/3 mL nebulizatio n soln Inhale 3 mL 4 times a day by nebulizatio n route as needed. ipratropium 0.5 mg-albutero l 3 mg (2.5 mg base)/3 mL nebulizatio n soln Inhale 3 mL 4 times a day by nebulizatio n route as needed. No ipratropiu m 0.5 mg-albuter ol 3 mg (2.5 mg base)/3 mL nebulizati on soln Inhale 3 mL 4 times a day by nebulizati on route as needed. [facility] melatonin 3 mg tablet Take 1 tablet every day by oral route at bedtime. melatonin 3 mg tablet Take 1 tablet every day by oral route at bedtime. No 1 Q1D melatonin 3 mg tablet Take 1 tablet every day by oral route at bedtime. [facility] metoprolol tartrate 25 mg tablet Take 0.5 tablets twice a day by oral route. metoprolol tartrate 25 mg tablet Take 0.5 tablets twice a day by oral route. No .5 BID metoprolol tartrate 25 mg tablet Take 0.5 tablets twice a day by oral route. [facility] thiamine HCl (vitamin B1) 100 mg tablet Take 1 tablet every day by oral route. thiamine HCl (vitamin B1) 100 mg tablet Take 1 tablet every day by oral route. No 1 Q1D thiamine HCl (vitamin B1) 100 mg tablet Take 1 tablet every day by oral route. [facility] famotidine 20 mg tablet Take 1 tablet twice a day by oral route. famotidine 20 mg tablet Take 1 tablet twice a day by oral route. No 1 BID famotidine 20 mg tablet Take 1 tablet twice a day by oral route. [facility] baclofen 10 mg tablet Take 1 tablet 3 times a day by oral route. baclofen 10 mg tablet Take 1 tablet 3 times a day by oral route. No 1 TID baclofen 10 mg tablet Take 1 tablet 3 times a day by oral route. [facility] gabapentin 100 mg capsule Take 1 capsule 3 times a day by oral route for 14 days. gabapentin 100 mg capsule Take 1 capsule 3 times a day by oral route for 14 days. No 1capsul e(s) TID gabapentin 100 mg capsule Take 1 capsule 3 times a day by oral route for 14 days. [facility] Vital Signs Vital Name Observation Time Observation Value Comments S ource Height 2024-02-27 00:00:00 62 [in_i] [facility] BMI (Body Mass Index) 2024-02-27 00:00:00 20.6 kg/m2 [facility] BP Systolic 2024-02-27 00:00:00 121 mm[Hg] [facility] BP Diastolic 2024-02-27 00:00:00 60 mm[Hg] [facility] Body Weight 2024-02-27 00:00:00 1798 [oz_av] [facility] BP Diastolic 2024-02-16 00:00:00 89 mm[Hg] [facility] Body Weight 2024-02-16 00:00:00 1824 [oz_av] [facility] BMI (Body Mass Index) 2024-02-16 00:00:00 20.9 kg/m2 [facility] Height 2024-02-16 00:00:00 62 [in_i] [facility] BP Systolic 2024-02-16 00:00:00 140 mm[Hg] [facility] BP Diastolic 2024-02-13 00:00:00 89 mm[Hg] [facility] Height 2024-02-13 00:00:00 62 [in_i] [facility] BMI (Body Mass Index) 2024-02-13 00:00:00 20.9 kg/m2 [facility] Body Weight 2024-02-13 00:00:00 1824 [oz_av] [facility] BP Systolic 2024-02-13 00:00:00 134 mm[Hg] [facility] BMI (Body Mass Index) 2024-01-30 00:00:00 20.5 kg/m2 [facility] BP Diastolic 2024-01-30 00:00:00 75 mm[Hg] [facility] Body Weight 2024-01-30 00:00:00 1796 [oz_av] [facility] BP Systolic 2024-01-30 00:00:00 153 mm[Hg] [facility] Height 2024-01-30 00:00:00 62 [in_i] [facility] BMI (Body Mass Index) 2024-01-23 00:00:00 19.9 kg/m2 [facility] BP Systolic 2024-01-23 00:00:00 136 mm[Hg] [facility] BP Diastolic 2024-01-23 00:00:00 82 mm[Hg] [facility] Body Weight 2024-01-23 00:00:00 1744 [oz_av] [facility] Height 2024-01-23 00:00:00 62 [in_i] [facility] Height 2024-01-04 00:00:00 62 [in_i] [facility] BP Diastolic 2024-01-04 00:00:00 62 mm[Hg] [facility] Body Weight 2024-01-04 00:00:00 1744 [oz_av] [facility] BMI (Body Mass Index) 2024-01-04 00:00:00 19.9 kg/m2 [facility] BP Systolic 2024-01-04 00:00:00 115 mm[Hg] [facility] Height 2023 00:00:00 62 [in_i] [facility] BMI (Body Mass Index) 2023 00:00:00 19.6 kg/m2 [facility] Body Weight 2023 00:00:00 1712 [oz_av] [facility] BP Systolic 2023 00:00:00 101 mm[Hg] [facility] BP Diastolic 2023 00:00:00 60 mm[Hg] [facility] BP Systolic 2023-12-22 00:00:00 157 mm[Hg] [facility] Height 2023-12-22 00:00:00 62 [in_i] [facility] BMI (Body Mass Index) 2023-12-22 00:00:00 19.6 kg/m2 [facility] Body Weight 2023-12-22 00:00:00 1712 [oz_av] [facility] BP Diastolic 2023-12-22 00:00:00 91 mm[Hg] [facility] BP Systolic 2023-12-05 00:00:00 118 mm[Hg] [facility] Body Weight 2023-12-05 00:00:00 1712 [oz_av] [facility] BP Diastolic 2023-12-05 00:00:00 81 mm[Hg] [facility] BMI (Body Mass Index) 2023-12-05 00:00:00 19.6 kg/m2 [facility] Height 2023-12-05 00:00:00 62 [in_i] [facility] Body Weight 2023-11-25 00:00:00 1592 [oz_av] [facility] BMI (Body Mass Index) 2023-11-25 00:00:00 18.2 kg/m2 [facility] BP Systolic 2023-11-25 00:00:00 124 mm[Hg] [facility] Height 2023-11-25 00:00:00 62 [in_i] [facility] BP Diastolic 2023-11-25 00:00:00 76 mm[Hg] [facility] BP Diastolic 2023-11-21 00:00:00 70 mm[Hg] [facility] Body Weight 2023-11-21 00:00:00 1592 [oz_av] [facility] BMI (Body Mass Index) 2023-11-21 00:00:00 18.2 kg/m2 [facility] Height 2023-11-21 00:00:00 62 [in_i] [facility] BP Systolic 2023-11-21 00:00:00 130 mm[Hg] [facility] Body Weight 2023-11-18 00:00:00 1592 [oz_av] [facility] BMI (Body Mass Index) 2023-11-18 00:00:00 18.2 kg/m2 [facility] 2023-11-18 00:00:00 62 [in_i] [facility] BP Diastolic 2023-11-18 00:00:00 71 mm[Hg] [facility] BP Systolic 2023-11-18 00:00:00 137 mm[Hg] [facility] Body Weight 2023-11-15 00:00:00 1592 [oz_av] [facility] BMI (Body Mass Index) 2023-11-15 00:00:00 18.2 kg/m2 [facility] Height 2023-11-15 00:00:00 62 [in_i] [facility] BP Systolic 2023-11-15 00:00:00 153 mm[Hg] [facility] BP Diastolic 2023-11-15 00:00:00 95 mm[Hg] [facility] Body Weight 2023-10-27 00:00:00 1634 [oz_av] [facility] BMI (Body Mass Index) 2023-10-27 00:00:00 18.7 kg/m2 [facility] Height 2023-10-27 00:00:00 62 [in_i] [facility] BP Systolic 2023-10-27 00:00:00 129 mm[Hg] [facility] BP Diastolic 2023-10-27 00:00:00 87 mm[Hg] [facility] BMI (Body Mass Index) 2023-10-19 00:00:00 18.7 kg/m2 [facility] BP Diastolic 2023-10-19 00:00:00 76 mm[Hg] [facility] Height 2023-10-19 00:00:00 62 [in_i] [facility] Body Weight 2023-10-19 00:00:00 1634 [oz_av] [facility] BP Systolic 2023-10-19 00:00:00 123 mm[Hg] [facility] Height 2023-09-27 00:00:00 62 [in_i] [facility] BMI (Body Mass Index) 2023-09-27 00:00:00 18 kg/m2 [facility] BP Diastolic 2023-09-27 00:00:00 82 mm[Hg] [facility] BP Systolic 2023-09-27 00:00:00 128 mm[Hg] [facility] Body Weight 2023-09-27 00:00:00 1572 [oz_av] [facility] BP Diastolic 2023-09-20 00:00:00 90 mm[Hg] [facility] Height 2023-09-20 00:00:00 62 [in_i] [facility] Body Weight 2023-09-20 00:00:00 1576 [oz_av] [facility] BMI (Body Mass Index) 2023-09-20 00:00:00 18 kg/m2 [facility] BP Systolic 2023-09-20 00:00:00 144 mm[Hg] [facility] BMI (Body Mass Index) 2023-08-30 00:00:00 18.1 kg/m2 [facility] BP Systolic 2023-08-30 00:00:00 131 mm[Hg] [facility] Body Weight 2023-08-30 00:00:00 1584 [oz_av] [facility] Height 2023-08-30 00:00:00 62 [in_i] [facility] BP Diastolic 2023-08-30 00:00:00 84 mm[Hg] [facility] BP Systolic 2023-08-26 00:00:00 124 mm[Hg] [facility] BMI (Body Mass Index) 2023-08-26 00:00:00 18.1 kg/m2 [facility] Height 2023-08-26 00:00:00 62 [in_i] [facility] BP Diastolic 2023-08-26 00:00:00 86 mm[Hg] [facility] Body Weight 2023-08-26 00:00:00 1584 [oz_av] [facility] Procedures Procedure Date / Time Performed Performing Clinicia n Source Gastrostomy [facility] [place], modified barium swallow study [facility] En[facility] Start Date/Time End Date/Time Encounter Type Admission Type Attending [facility] Care Facility Care Department Encounter ID Source 2024-02-27 00:00:00 2024-02-27 00:00:00 NOEMY Leach: [address] [place] [phone] , Ph. [facility]HC_[facility] [id number] [facility] 2024-02-16 00:00:00 2024-02-16 00:00:00 Segundo Mcelroy MD: [address] [place] [phone] , Ph. [facility] [id number] [facility] 2024-02-13 00:00:00 2024-02-13 00:00:00 NOEMY Leach: [address] [place] [phone] , Ph. [facility] GC_BAHC_Lak [facility] [id number] [facility] 2024-01-30 00:00:00 2024-01-30 00:00:00 NOEMY Leach: [address] [place] [phone] , Ph. [facility] GC_[facility] [id number] [facility] 2024-01-23 00:00:00 2024-01-23 00:00:00 NOEMY Leach: [address] [place] [phone] , Ph. [facility] - GC_BAHC_Lak [facility] [id number] [facility] 2024-01-04 00:00:00 2024-01-04 00:00:00 NOEMY Leach: [address] [place] [phone] , Ph. [facility] - GC_BAHC_Lak [facility] [id number] [facility] 2023 00:00:00 2023 00:00:00 NOEMY Leach: [address] [place] [phone] , Ph. [facility] - GC_BAHC_[facility] [id number] [facility] 2023-12-22 00:00:00 2023-12-22 00:00:00 Segundo Mcelroy MD: [address] [place] [phone] , Ph. [facility] - GC_BAHC_[facility] [id number] [facility] 2023-12-05 00:00:00 2023-12-05 00:00:00 NOEMY Leach: [address] [place] [phone] , Ph. [facility] - GC_BAHC_[facility] [id number] [facility] 2023-11-25 00:00:00 2023-11-25 00:00:00 NOEMY Leach: [address] [place] [phone] , Ph. [facility] - GC_[facility]HC_[facility] [id number] [facility] 2023-11-21 00:00:00 2023-11-21 00:00:00 NOEMY Leach: [address] [place] [phone] , Ph. [facility] - GC_[facility]HC_[facility] [id number] [facility] 2023-11-18 00:00:00 2023-11-18 00:00:00 Darcie Perez PA: [address] [place], [place] [phone] , Ph. [facility] - GC_[facility]HC_[facility] [id number] [facility] 2023-11-15 00:00:00 2023-11-15 00:00:00 Darcie Perez PA: [address] [place] [phone] , Ph. [facility] - GC_BAHC_[facility] [id number] [facility] 2023-10-27 00:00:00 2023-10-27 00:00:00 Segundo Mcelroy MD: [address] [place] [phone] , Ph. [facility] - GC_BAHC_[facility] [id number] [facility] 2023-10-19 00:00:00 2023-10-19 00:00:00 Darcie Perez PA: [address] [place] [phone] , Ph. [facility] - GC_BAHC_[facility]ak [facility] [id number] [facility] 2023-09-27 00:00:00 2023-09-27 00:00:00 Darcie Perez PA: [address] [place] [phone] , Ph. [facility] - GC_BAHC_[facility] [id number] [facility] 2023-09-20 00:00:00 2023-09-20 00:00:00 NOEMY Leach: [address] [place] [phone] , Ph. [facility] - GC_[facility]HC_[facility] [id number] [facility] 2023-09-20 00:00:00 2023-09-20 00:00:00 Darcie Perez PA: [address] [place], [place] [phone] , Ph. [facility] - GC_[facility]HC_[facility] [id number] [facility] 2023-08-30 00:00:00 2023-08-30 00:00:00 Darcie Perez PA: [address] [place] [phone] , Ph. [phone] [place] [address] - GC_BAHC_Lak [facility] [id number] [facility] 2023-08-30 00:00:00 2023-08-30 00:00:00 NOEMY Leach: [address] [place] [phone] , Ph. [facility] - GC_[facility]HC_[facility] [id number] [facility] 2023-08-26 00:00:00 2023-08-26 00:00:00 NOEMY Leach: [address] [place] [phone] , Ph. [facility] - GC_[facility]HC_[facility]ak [facility] [id number] [facility] 2023-08-25 00:00:00 2023-08-25 00:00:00 Segundo Mcelroy MD: [address] [place] [phone] , Ph. [facility] - GC_[facility] [id number] [facility] 2023-08-19 00:00:00 2023-08-19 00:00:00 NOEMY Leach: [address] [place] [phone] , Ph. [facility] - GC_[facility] [id number] [facility] 2023-08-05 15:00:00 2023-08-05 15:00:00 Outpatient GENA MADDOXJAYBradley [facility] [id number] [facility] 2023-07-29 00:00:00 2023-07-29 00:00:00 NOEMY Leach: [address] [place] [phone] , Ph. [facility] - GC_[facility] [id number] [facility] 2023-07-23 00:00:00 2023-07-23 00:00:00 Outpatient GC_BAHC_Tod d_J PRIV PRIV [id number] [facility] 2023-06-17 00:00:00 2023-06-17 00:00:00 Outpatient GC_BAHC_Tod d_J PRIV PRIV [id number] [facility] 2023-06-17 00:00:00 2023-06-17 00:00:00 Outpatient GC_BAHC_Tod d_J PRIV PRIV [id number] [facility] 2023-06-17 00:00:00 2023-06-17 00:00:00 Outpatient GC_BAHC_Tod d_J PRIV PRIV [id number] [facility] 2023-06-17 00:00:00 2023-06-17 00:00:00 Outpatient GC_BAHC_Tod d_J PRIV PRIV [id number] [facility] 2023-06-17 00:00:00 2023-06-17 00:00:00 Outpatient GC_BAHC_Tod d_J PRIV PRIV [id number] [facility] 2023-06-17 00:00:00 2023-06-17 00:00:00 Outpatient GC_BAHC_Tod d_J PRIV PRIV [id number] [facility] 2023-06-17 00:00:00 2023-06-17 00:00:00 Outpatient GC_BAHC_Tod d_J PRIV PRIV [id number] [facility] 2023-06-17 00:00:00 2023-06-17 00:00:00 Outpatient GC_BAHC_Tod d_J PRIV PRIV [id number] [facility] 2023-06-17 00:00:00 2023-06-17 00:00:00 Outpatient GC_BAHC_Tod d_J PRIV PRIV [id number] [facility] 2023-06-16 00:00:00 2023-06-16 00:00:00 Outpatient GC_BAHC_Tod d_J PRIV PRIV [id number] [facility] 2023-06-13 11:00:00 2023-06-13 11:00:00 Outpatient YVONNE DEGROOT [facility] [id number] [facility]
--- NOTE | 2024-03-08 18:20 | RAD REPORT ---
EXAM DESCRIPTION: CT - Head Brain Wo Cont - 03/08/2024 6:13 pm CLINICAL HISTORY: Swelling;Trauma Headache, drowsiness COMPARISON: Facial Bones W/ Mpr dated 07/19/2023; Head Brain Wo Cont dated 12/08/2021; Head C Spine M pr Wo Con dated 07/19/2023 TECHNIQUE: All CT scans are performed using dose optimization technique as appropriate and may inclu de automated exposure control or mA/KV adjustment according to patient size. FINDINGS: No intracranial hemorrhage, hydrocephalus or extra-axial fluid collection.There is gliosis in the posterior left frontal lobe likely related to old infarct. Small lacunar infarct is present r ight basal ganglia.No areas of brain edema or evidence of midline shift. Left vertebral artery is ath erosclerotic. The paranasal sinuses and mastoids are clear. The calvarium is intact. IMPRESSION: No acute intracranial abnormality.
[2024-03-08] MEDS ORDERED: DERMABOND SKIN ADHESIVE TOP ONE (18:42)
[2024-03-08] MEDS ORDERED: LIDOCAINE 2% W/EPI 1:200,000 MPF 20 ML VIAL IM ONE (18:46)
[2024-03-08 19:27] LABS: Absolute Basophils 0.1 K/uL (0-0.5); Absolute Lymphocytes (CBC) 0.7 K/uL (0.7-4.9); Absolute Monocytes 0.5 K/uL (0.1-1.3); Absolute Neutrophil 9.8 K/uL (1.8-8.0); Basophils % 0.5 % (0-1.3); Eosinophils % 0.3 % (0-4.4); Hemoglobin 11.8 g/dL (12.0-15.0); Lymphocytes % 6.5 % (15.3-44.8); MCH 31.9 pg (27.0-35.0); MCHC 33.6 g/dL (32.0-36.0); MPV 8.6 fL (7.6-11.3); Monocytes % 4.7 % (3.3-12.3); Nucleated Red Blood Cells % 0.1 % (0-0); Platelets 271 thou/uL (152-406); RBC Red Blood Cell Count 3.69 M/uL (3.86-4.86); Red Cell Distribution Width 12.7 % (12.1-15.2)
[2024-03-08 19:35] LABS: Albumin 3.7 g/dL (3.4-5.0); Anion Gap 10.2 mEq/L (5.0-15.0); Bilirubin Total 0.4 mg/dL (0.2-1.0); Globulin 3.8 g/dL (2.3-3.5); Protein, Total 7.5 g/dL (6.4-8.2)
[2024-03-08 19:36] LABS: Potassium 4.2 mEq/L (3.5-5.1)
--- NOTE | 2024-03-08 19:52 | ER ---
Nurse's Notes [facility] Name: Hillray Simms Age: 68 yrs Sex: Female : 1955 Arrival Date: 03/08/2024 Time: 17:26 Bed 17 Private MD: Diagnosis: Fall from non-moving wheelchair;Hypo-osmolality and hyponatremia Presentation: 03/08 17:30 Chief complaint: EMS states: PATIENT FROM [facility]. EMS CALLED DUE TO db PATIENT HAD A SEIZURE AND FELL OUT OF WHEELCHAIR. LACERATION TO HEAD ABOVE RIGHT EYE. PT IS NON VERBAL. HX OF CEREBRAL INFARCTION. Coronavirus screen: Client denies travel out of the [place] in the last 14 days. At this time, the client does not indicate any symptoms associated with coronavirus-19. Ebola Screen: Patient negative for fever greater than or equal to 101.5 degrees Fahrenheit, and additional compatible Ebola Virus Disease symptoms Patient denies exposure to infectious person. Patient denies travel to an Ebola-affected area in the 21 days before illness onset. No symptoms or risks identified at this time. Complicating Factors: There are no complicating factors for this patient. Initial Sepsis Screen: Does the patient meet any 2 criteria? No. Patient's initial sepsis screen is negative. Does the patient have a suspected source of infection? No. Patient's initial sepsis screen is negative. Risk Assessment: Do you want to hurt yourself or someone else? Patient reports no desire to harm self or others. Onset of symptoms was March 08, 2024. Care prior to arrival: Placed on backboard. Glucose check: 138 BACK BOARD REMOVED. Mechanism of Injury: Fall WHEELCHAIR. 17:30 Method Of Arrival: EMS: [facility] db 17:30 Acuity: PREETI 2 db Triage Assessment: 17:30 General: Appears in no apparent distress. comfortable, Behavior is calm. Pain: db Complains of pain in face. Neuro: Level of Consciousness is awake, alert, obeys commands, Oriented to none IS NOT SPEAKING. Respiratory: Airway is patent Respiratory effort is even, unlabored, Respiratory pattern is regular, symmetrical. Injury Description: Laceration sustained to right eye. Historical: - Allergies: 17:30 PENICILLINS; db - PMHx: 17:30 Alzheimer's disease; Anemia; Cerebrovascular accident; COPD; Dementia; GI Bleed; db Hypercholesterolemia; Hypertension; - PSHx: 17:30 gastrostomy tube; tubal ligation; db - Immunization history:: Adult Immunizations unknown. - Infectious Disease History:: Denies. - Social history:: Smoking status: Patient denies any tobacco usage or history of. Screenin:42 [facility] ED Fall Risk Assessment (Adult) History of falling in the last 3 months, db including since admission Yes- physiologic fall (2 pts) Confusion or Disorientation No (0 pts) Intoxicated or Sedated No (0 pts) Impaired Gait Yes (1 pt) Mobility Assist Device Used Yes (1 pt) Altered Elimination Yes (1 pt) Score/Fall Risk Level 3 or more points = High Risk Oriented to surroundings, Maintained a safe environment, Hourly rounding (assess needs \T\ fall precautionary measures) done. Abuse screen: Denies threats or abuse. Denies injuries from another. Nutritional screening: No deficits noted. Tuberculosis screening: No symptoms or risk factors identified. Assessment: 17:45 Reassessment: SEE TRIAGE FOR INITIAL ASSESSMENT. db 18:45 Reassessment: Patient appears in no apparent distress at this time. Patient and/or db family updated on plan of care and expected duration. Pain level reassessed. PHYSICIAN AT BEDSIDE FOR LACERATION REPAIR WITH DERMABOND. General: Appears in no apparent distress. comfortable, Behavior is calm, cooperative. Neuro: Level of Consciousness is awake, alert, obeys commands. 19:00 General: Appears in no apparent distress. comfortable, Behavior is calm, cooperative. cp4 Neuro: Level of Consciousness is awake, alert, obeys commands. Cardiovascular: No deficits noted. Respiratory: No deficits noted. GI: No deficits noted. : No deficits noted. EENT: No deficits noted. Derm: No deficits noted. Injury Description: Laceration is clean, 0.5 to 2.5 cm long, not bleeding. 20:00 Reassessment: No changes from previously documented assessment. Patient and/or family cp4 updated on plan of care and expected duration. Pain level reassessed. Patient is alert, oriented x 3, equal unlabored respirations, skin warm/dry/pink. 21:00 Reassessment: No changes from previously documented assessment. Patient and/or family cp4 updated on plan of care and expected duration. Pain level reassessed. Patient is alert, oriented x 3, equal unlabored respirations, skin warm/dry/pink. Vital Signs: 17:30 BP 161 / 97; Pulse 92; Resp 16; Temp 97.8(A); Pulse Ox 96% ; Weight 52.62 kg (M); db 18:42 BP 176 / 95; Pulse 95; Resp 16; Pulse Ox 95% on R/A; db 19:30 BP 173 / 108; Pulse 94; Resp 17; Pulse Ox 95% ; cp4 20:30 BP 163 / 100; Pulse 95; Resp 17; Pulse Ox 96% ; cp4 21:30 BP 128 / 82; Pulse 89; Resp 16; Pulse Ox 96% ; cp4 [place] Coma Score: 19:01 Eye Response: spontaneous(4). Motor Response: none(1). Verbal Response: none(1). Total: bo1 6. ED Course: 17:30 Arm band placed on Patient placed in an exam room. db 17:40 Seizure precautions initiated. db 17:44 Patient arrived in ED. em1 17:46 Isela Sewell RN is Primary Nurse. db 17:49 Triage completed. db 17:55 Jacoby Mclain MD is Attending Physician. bo1 18:15 CT Head Brain wo Cont In Process Unspecified. EDMS 18:30 Inserted saline lock: 22 gauge in left forearm, using aseptic technique. Blood db collected. Flushed with 10 mL NS. 19:10 Report given to LM LECHUGA. Pulse ox on. NIBP on. Warm blanket given. Pillow given. db 19:37 Yuliet Pardo is Primary Nurse. cp4 19:37 Cleaned of incontinence. cp4 19:37 Urine collected: straight cath specimen, clear, Amount Returned: 100mL. cp4 19:51 Kenroy Power MD is Hospitalizing Provider. bo1 22:21 Provided Education on: admission. cp4 22:21 No provider procedures requiring assistance completed. Patient admitted, IV remains in cp4 place. Administered Medications: 20:06 Drug: NS 0.9% IV 1000 ml IV at 75 ml/hr continuous Route: IV; Rate: 75 ml/hr; Site: cp4 left hand; 22:23 Follow up: Response: No adverse reaction; IV Status: Infusion continued upon admission cp4 20:06 Drug: hydrALAZINE IVP 10 mg IVP once Route: IVP; Site: left hand; cp4 20:40 Follow up: Response: No adverse reaction cp4 20:53 Drug: Rocephin IV 1 grams IV at bolus once; Given slow IV push per pharmacy cp4 instructions Route: IV; Rate: bolus; Site: left hand; 20:53 Follow up: Response: No adverse reaction; IV Status: Completed infusion cp4 Medication: 22:21 VIS not applicable for this client. cp4 Outcome: 19:51 Decision to Hospitalize by Provider. bo1 22:21 Admitted to Med/surg accompanied by tech, via stretcher, with chart, cp4 22:21 Condition: stable 22:21 Instructed on the need for admit, 22:23 Patient left the ED. cp4 Signatures: Dispatcher [employer] EDHerberth [place] em1 Isela Sewell, Yuliet Hughes RN cp4 Jacoby Mclain MD MD bo1
--- NOTE | 2024-03-08 19:52 | EDPHYS ---
Physician Documentation [facility] Name: Hillary Simms Age: 68 yrs Sex: Female : 1955 Arrival Date: 03/08/2024 Time: 17:26 Bed 17 Private MD: ED Physician Jacoby Mclain HPI: 03/08 19:05 This 68 yrs old Female presents to ER via EMS with complaints of Laceration To Head, bo1 Fall Injury, Probable Seizure. 19:05 The patient has a laceration occurred at a senior living or assisted living facility, bo1 The injury was Fell from wheelchair. The laceration(s) is(are) located on the face. Onset: The symptoms/episode began/occurred suddenly, Transport by EMS with c-collar and backboard for precautions. Historical: - Allergies: 17:30 PENICILLINS; db - PMHx: 17:30 Alzheimer's disease; Anemia; Cerebrovascular accident; COPD; Dementia; GI Bleed; db Hypercholesterolemia; Hypertension; - PSHx: 17:30 gastrostomy tube; tubal ligation; db - Immunization history:: Adult Immunizations unknown. - Infectious Disease History:: Denies. - Social history:: Smoking status: Patient denies any tobacco usage or history of. ROS: 18:59 All other systems are negative, bo1 18:59 Unable to obtain ROS due to Pt is from the senior living and is non verbal but is alert and does respond to voice, 19:52 Constitutional: Unknown as pt cannot provide hx. Per EMS possible "seizure" but none bo1 witnessed Exam: 19:01 Constitutional: This is a well developed, well nourished patient who is awake, alert, bo1 and in no acute distress. Head/Face: Laceration to the right eyebrow area (1.5 inches) Some ecchymosis to the right upper eyelid 19:01 Constitutional: The patient appears alert, No distress or seizure 19:01 Eyes: Pupils: no acute changes, right pupil is approximately 2 mm(s), left pupil is approximately 2 mm(s), 19:01 Neck: C-spine: no acute changes, C-collar placed WEED CUTTER, C-collar is removed, No midline step offs or muscle spasms, 19:01 Chest/axilla: Inspection: normal, 19:01 Abdomen/GI: Inspection: abdomen appears normal, G-tube, 19:01 Skin: injury, laceration(s), the wound is approximately 3 cm(s), of the face, Minor scrapes to the right forearm, 19:01 Neuro: seizure activity, is not displayed by the patient, Weakness \\T\\ right UE/LE - Baseline CVA Hx, Vital Signs: 17:30 BP 161 / 97; Pulse 92; Resp 16; Temp 97.8(A); Pulse Ox 96% ; Weight 52.62 kg (M); db 18:42 BP 176 / 95; Pulse 95; Resp 16; Pulse Ox 95% on R/A; db 19:30 BP 173 / 108; Pulse 94; Resp 17; Pulse Ox 95% ; cp4 20:30 BP 163 / 100; Pulse 95; Resp 17; Pulse Ox 96% ; cp4 21:30 BP 128 / 82; Pulse 89; Resp 16; Pulse Ox 96% ; cp4 [place]o Coma Score: 19:01 Eye Response: spontaneous(4). Motor Response: none(1). Verbal Response: none(1). Total: bo1 6. Laceration: 18:57 Wound Repair of 3cm ( 1.2in ) subcutaneous laceration to face - right eyebrow area (non bo1 jodie bearing). Linear shaped.. Distal neuro/vascular/tendon intact. Anesthesia: Local anesthetic administered with 1.5 mls of 1% lidocaine w/ Epi. Wound prep: Simple cleansing. Skin closed with Dermabond Adhesive skin closure using Dermabond. Dressed with bandaid. Patient tolerated well. MDM: 17:55 Patient medically screened. bo1 19:01 Differential diagnosis: superficial laceration, Fall from a wheelchair. Data reviewed: bo1 lab test result(s), CBC, electrolytes, radiologic studies, CT scan. 03/08 17:56 Order name: CBC with Diff bo1 03/08 17:56 Order name: CMP; Complete Time: 19:46 bo1 03/08 17:56 Order name: Urinalysis w/ reflexes; Complete Time: 20:29 bo1 03/08 20:11 Order name: Urine Culture EDMS 03/08 20:49 Order name: Urinalysis w/ reflexes EDMS 03/08 20:49 Order name: CBC with Automated Diff EDMS 03/08 20:49 Order name: CBC with Automated Diff EDMS 03/08 20:49 Order name: Comprehensive Metabolic Panel EDMS 03/08 20:49 Order name: Comprehensive Metabolic Panel EDMS 03/08 20:49 Order name: Magnesium EDMS 03/08 20:49 Order name: Magnesium EDMS 03/08 20:49 Order name: Phosphorus EDMS 03/08 20:49 Order name: Phosphorus EDMS 03/08 21:10 Order name: CBC Smear Scan EDMS 03/08 17:57 Order name: CT Head Brain wo Cont; Complete Time: 18:23 bo1 03/08 17:56 Order name: IV Saline Lock; Complete Time: 19:09 bo1 03/08 17:56 Order name: Labs collected and sent; Complete Time: 19:09 bo1 03/08 18:41 Order name: Dermabond; Complete Time: 19:09 bo1 Administered Medications: 20:06 Drug: NS 0.9% IV 1000 ml IV at 75 ml/hr continuous Route: IV; Rate: 75 ml/hr; Site: [facility] left hand; 22:23 Follow up: Response: No adverse reaction; IV Status: Infusion continued upon admission cp4 20:06 Drug: hydrALAZINE IVP 10 mg IVP once Route: IVP; Site: left hand; cp4 20:40 Follow up: Response: No adverse reaction cp4 20:53 Drug: Rocephin IV 1 grams IV at bolus once; Given slow IV push per pharmacy cp4 instructions Route: IV; Rate: bolus; Site: left hand; 20:53 Follow up: Response: No adverse reaction; IV Status: Completed infusion cp4 Disposition Summary: 03/08/24 19:51 Hospitalization Ordered Notes: Hospitalization Status: Observation bo1 Provider: Kenroy Power bo1 Location: Telemetry/MedSurg (observation) bo1 Condition: Fair bo1 Problem: new bo1 Symptoms: are unchanged bo1 Bed/Room Type: Standard [facility] Room Assignment: 403(03/08/24 20:52) rv1 Diagnosis - Fall from non-moving wheelchair bo1 - Hypo-osmolality and hyponatremia bo1 Forms: - Medication Reconciliation Form bo1 - SBAR form bo1 - Leadership Thank You Letter bo1 Signatures: Dispatcher [employer] EDMS Isela Sewell, RN RN Connie Nolasco rv1 Yuliet Pardo cp4 Jacoby Mclain MD MD bo1 Corrections: (The following items were deleted from the chart) 17:57 17:57 CBC+H.LAB.BRZ ordered. EDMS EDMS 17:57 17:57 COMPREHENSIVE METABOLIC PANEL+C.LAB.BRZ ordered. EDMS EDMS 17:57 17:57 Urinalysis+U.LAB.BRZ ordered. EDMS EDMS 20:52 19:51 bo1 rv1
[2024-03-08] MEDS ORDERED: NA CHLORIDE 0.9% 1,000 ML ONE (19:57)
[2024-03-08 19:58] LABS: Specific Gravity 1.012 (1.005-1.030); Sqamous Epithelial None Seen /HPF (None Seen); Urine Bacteria <20 /HPF (<20); Urine Bilirubin NEGATIVE (Negative); Urine Blood Negative (Negative); Urine Clarity Extremely Turbid (Clear); Urine Color Light-Yellow (Yellow); Urine Culture Reflex Order REFLEXED; Urine Glucose NEGATIVE (Negative); Urine Ketones NEGATIVE (Negative); Urine Microscopic Reflex YN ORDER UMIC; Urine Nitrite NEGATIVE (Negative); Urine Protein NEGATIVE (Negative); Urine RBC <5 /HPF (None Seen); Urine Urobilinogen Normal (Normal); Urine WBC >50 /HPF (<5); Urine pH 7.5 (5.0-7.0)
[2024-03-08] MEDS ORDERED: HYDRALAZINE HCL 20 MG/ML VIAL ONE (20:04)
[2024-03-08] MEDS ORDERED: ONDANSETRON 4 MG/2 ML VIAL IV PRN (20:45)
[2024-03-08] MEDS ORDERED: ACETAMINOPHEN 325 MG TABLET PO PRN (20:45)
--- NOTE | 2024-03-08 20:46 | P.HP ---
Certification for Inpatient Patient admitted to: Inpatient With expected LOS: >2 Midnights Practitioner: I am a practitioner with admitting privileges, knowledge of patient current condition, hospital course, and medical plan of care. Services: Services provided to patient in accordance with Admission requirements found in Title 42 Section 412.3 of the Code of Federal Regulations Patient History Date of Service: 03/09/24 Reason for admission: Fall/ Seizure / History of Present Illness: 68 yrs old Female who was enhancing on resident with past medical history of Alzheimer's dementia, CVA, COPD, dementia, anemia, hypertension, hyperlipidemia who was brought to ER with history of fall. Patient is a poor historian hence most of the history is obtained from the chart review and also talk to the ER physician. Patient had witnessed fall. Denies any loss of consciousness. She fell from a wheelchair and had a laceration found on the face which was repaired by the ER physician and was noted to have hyponatremia and was admitted for further management. As per the [facility] note patient was having a seizure- like episode before falling down. Patient denies any previous history of seizures. No fever or chills. No nausea vomiting or diarrhea. Patient being admitted for further management that she was having significant hyponatremia Allergies Penicillins Allergy (Unknown, Verified 01/19/14 11:20) Itching/Hives/Rash Home medications list reviewed: Yes Home Medications: Budesonide/Formoterol Fumarate [Symbicort 160-4.5 Mcg Inhaler] 2 puff IH BID #1 hfa.aer.[id number] 04/11/16 Amlodipine [Norvasc*] 10 mg FT DAILY 03/08/24 Aspirin [Aspirin EC 81 MG] 81 mg FT DAILY 03/08/24 Atorvastatin Calcium [Lipitor] 80 mg FT BEDTIME 03/08/24 Baclofen 10 mg FT TID 03/08/24 Docusate [Colace Cap] 100 mg FT BID 03/08/24 Famotidine 20 mg FT BID 03/08/24 Ferrous Sulfate 7 ml FT BID 03/08/24 Gabapentin [Neurontin] 100 mg FT TID 03/08/24 Ipratropium/Albuterol Sulfate [Iprat-Albut 0.5-3(2.5) mg/3 ml] 3 ml IH Q6H 03/08/24 - Past Medical/Surgical History Diabetic: No Past Medical History: Reviewed- Non-Contributory -: Migraines -: Tobacco abuse -: Alcohol use -: Anemia -: Fibroids -: Chronic back pain -: COPD -: Hypertension Past Surgical History: Reviewed- Non-Contributory -: Tubal ligation Psychosocial/ Personal History: She is currently . She has 2 children. She does not work. - Family History Family History: Reviewed- Non-Contributory - Family History Mother -: Diabetes, Other (see notes) - Social History Smoking Status: Former smoker Alcohol use: Yes CD- Drugs: No Caffeine use: No Review of Systems 10-point ROS is otherwise unremarkable Physical Examination - Vital Signs Temperature: 97.8 F Blood Pressure: 160/90 Pulse: 82 Respirations: 18 Pulse Ox (%): 94 - Physical Exam General: Alert, In no apparent distress, Oriented x2 HEENT: Normocephalic, Other (Lacerated wound Forehead ) Neck: Supple, No Thyromegaly Respiratory: Clear to auscultation bilaterally, Normal air movement Cardiovascular: No edema, Regular rate/rhythm, Normal S1 S2 Capillary refill: <2 Seconds Gastrointestinal: Soft and benign, W/out hepatosplenomegaly Musculoskeletal: No clubbing, No swelling Integumentary: No rashes, No breakdown Neurological: Other (Alert, awake ) Lymphatics: No axilla or inguinal lymphadenopathy - Studies Laboratory Data (last 24 hrs) 03/08/24 03/08/24 18:36 18:36 WBC 11.10 H Hgb 11.8 L Hct 35.0 L Plt Count 271 Sodium 129 L Potassium 4.2 BUN 22 H Creatinine 0.79 Glucose 133 H Total Bilirubin 0.4 AST 43 H ALT 44 Alkaline Phosphatase 93 Assessment and Plan - Plan Hyponatremia Hypochloremia Dehydration Started on IV hydration with normal saline Monitor neuro vital signs History of fall Possible seizure CT head negative for any acute changes Patient denies any LOC Leukocytosis UA noted Started on Rocephin Hypertension Antihypertensives titrated Continue home medications and titrate as needed Hyperlipidemia Continue statin GI/DVT prophylaxis Advanced directive full code Discharge Plan: Penitentiary Plan to discharge in: 48 Hours - Advance Directives Does patient have a Living Will: No Does patient have a Durable POA for Healthcare: No - Code Status/Comfort Care Code Status: Full Code Time Spent Managing Pts Care (In Minutes): 48
[2024-03-08] MEDS ORDERED: CEFTRIAXONE 1000 MG/VIAL ONE (20:48)
[2024-03-08] MEDS: NA CHLORIDE 0.9% 1,000 ML IV SCH (21:00)
[2024-03-08 21:09] LABS: Blood Morphology Comment NOT SEEN (NOT SEEN); Platelet Estimate ADEQ; White Blood Cell Scan OK (OK)
[2024-03-09 00:15] VITALS: BMI 21.9
[2024-03-09 06:20] LABS: Absolute Eosinophils 0.1 K/uL (0-0.5); Absolute Monocytes 0.6 K/uL (0.1-1.3); Absolute Neutrophil 7.8 K/uL (1.8-8.0); Basophils % 0.5 % (0-1.3); Eosinophils % 0.8 % (0-4.4); Hematocrit 30.3 % (36.0-45.0); Hemoglobin 10.3 g/dL (12.0-15.0); Lymphocytes % 10.9 % (15.3-44.8); MCH 32.3 pg (27.0-35.0); MPV 8.5 fL (7.6-11.3); Monocytes % 6.3 % (3.3-12.3); Neutrophils % 81.5 % (41.7-73.7); Platelets 247 thou/uL (152-406); RBC Red Blood Cell Count 3.19 M/uL (3.86-4.86); Red Cell Distribution Width 12.7 % (12.1-15.2)
[2024-03-09 06:39] LABS: Albumin 3.1 g/dL (3.4-5.0); Albumin/Globulin Ratio 0.9 (1.1-1.8); Anion Gap 7.7 mEq/L (5.0-15.0); Bilirubin Total 0.4 mg/dL (0.2-1.0); Globulin 3.3 g/dL (2.3-3.5); Magnesium 1.7 mg/dL (1.6-2.4); Phosphorus 2.8 mg/dL (2.5-4.9); Potassium 3.7 mEq/L (3.5-5.1); Protein, Total 6.4 g/dL (6.4-8.2)
[2024-03-09] MEDS: ENOXAPARIN 40 MG/0.4 ML SQ SCH (07:50)
[2024-03-09] MEDS: ALBUTEROL SULFATE IH SCH (14:30)
[2024-03-09] MEDS: IPRATROPIUM IH SCH (14:30)
--- NOTE | 2024-03-09 14:44 | P.PN ---
Subjective Date of Service: 03/09/24 Chief Complaint: Fall/ Seizure / Patient is nonverbal and cannot provide any history. No reported diarrhea or vomiting. No seizures. She is awake. Physical Examination - Vital Signs Temperature: 99 F Blood Pressure: 134/90 Pulse: 99 Respirations: 16 Pulse Ox (%): 93 - Studies Laboratory Data (last 24 hrs) 03/08/24 03/08/24 18:36 18:36 WBC 11.10 H Hgb 11.8 L Hct 35.0 L Plt Count 271 Sodium 129 L Potassium 4.2 BUN 22 H Creatinine 0.79 Glucose 133 H Total Bilirubin 0.4 AST 43 H ALT 44 Alkaline Phosphatase 93 Assessment And Plan - Plan Physical examination General: Awake, NAD, HEENT: Conjunctiva not pale, anicteric sclera Neck: Supple, no elevated JVD Heart: Heart sounds 1 and 2 normal, regular rhythm, normal rate, no pedal edema Lungs: Clear to auscultation bilaterally, adequate breath sounds bilaterally, no rhonchi or crackles. Abdomen: Soft, nondistended, nontender, normal bowel sounds. Extremities: No tenderness, contracted right upper extremity, Skin: Normal skin turgor, no rash, no nodules or ulcers. Neuro: Right-sided weakness. Nonverbal. Psychiatry: No agitation. Assessment and plan Hyponatremia Hypochloremia Dehydration Sodium level improved. Continue IV normal saline. Monitor BMP every 6 hours Monitor neuro vital signs Fall Seizure-like activity CT head negative for any acute changes. Patient with a history of CVA Case discussed with neurology Dr. Ragsdale who recommended initiating Keppra. EEG ordered Neurochecks. Leukocytosis Acute cystitis without hematuria Continue Rocephin Follow urine culture. Hypertension Resume home antihypertensive Hyperlipidemia Continue statin DVT prophylaxis: Lovenox Advanced directive full code
--- NOTE | 2024-03-09 14:46 | P.PN ---
Date of Service: 03/09/24 Subjective ROS 10 point ROS as noted above, otherwise negative Physical Exam General: Alert, In no apparent distress, Oriented x2 HEENT: Normocephalic, Other (Lacerated wound Forehead ) Neck: Supple, No Thyromegaly Respiratory: Clear to auscultation bilaterally, Normal air movement Cardiovascular: No edema, Regular rate/rhythm, Normal S1 S2 Capillary refill: <2 Seconds Gastrointestinal: Soft and benign, PEG tube in place Musculoskeletal: No clubbing, No swelling Integumentary: No rashes, No breakdown Neurological: Other (Alert, awake ) Lymphatics: No axilla or inguinal lymphadenopathy Vitals Reviewed Problem list Hyponatremia Hypochloremia Dehydration History of fall Subjective seizure Leukocytosis Hypertension Hyperlipidemia Assessment and Plan Hyponatremia Hypochloremia Dehydration Started on IV hydration with normal saline Monitor neuro vital signs PEG tube not currently used Speech History of fall Possible seizure Witnessed seizure activity Consult Dr. Ragsdale CT head negative for any acute changes Patient denies any LOC UTI Mild Leukocytosis UA noted Started on Rocephin Hypertension Antihypertensives titrated Continue home medications and titrate as needed Hyperlipidemia Continue statin DVT ppx lovenox Advanced directive full code Discharge Plan: [facility] Plan to discharge in: 48 Hours
--- NOTE | 2024-03-09 15:13 | RAD REPORT ---
EXAM DESCRIPTION: RAD - Chest Single View - 03/09/2024 2:26 pm CLINICAL HISTORY: shortness of breath Chest pain. COMPARISON: Chest Single View dated 10/16/2023; Chest Single View dated 05/30/2022; Chest Single View dated 12/08/2021; Chest Pa And Lat (2 Views) dated 04/11/2016; Chest Pa And Lat (2 Views) dated 016 FINDINGS: Portable technique limits examination quality. The lungs are grossly clear. The heart is normal in size. No displaced fractures. IMPRESSION: No acute intrathoracic process suspected.
[2024-03-09] MEDS: levETIRAcetam 1,000 MG in NA CHLORIDE 0.9% 100 ML IV ONE ×2 (15:45→17:34)
[2024-03-09] MEDS: SENNOSIDES 8.6 MG PO SCH (21:00)
[2024-03-09] MEDS: MELATONIN 5 MG TABLET PO SCH (21:00)
[2024-03-09] MEDS: BUDESONIDE IH SCH (21:00)
[2024-03-09] MEDS: FORMOTEROL FUMARATE IH SCH (21:00)
[2024-03-09] MEDS: levETIRAcetam 500 MG/5 ML OSYR FT SCH (21:27)
[2024-03-09] MEDS: METOPROLOL TAR 25 MG TAB PO SCH (21:29)
[2024-03-09] MEDS: BACLOFEN 10 MG TAB FT SCH (21:30)
[2024-03-09] MEDS: GABAPENTIN 100 MG CAP FT SCH (21:31)
[2024-03-09] MEDS: ATORVASTATIN 80 MG TAB FT SCH (21:31)
[2024-03-09] MEDS: FAMOTIDINE 20 MG TAB FT SCH (21:31)
[2024-03-09] MEDS: POLYETHYL GLY 3350 17 GM/DOSE PO SCH (21:31)
[2024-03-09] MEDS: levETIRAcetam 500 MG in NA CHLORIDE 0.9% 100 ML IV SCH (21:31)
[2024-03-09] MEDS: ENSURE ENLIVE 237 ML CAN PO SCH (21:32)
[2024-03-10] MEDS: ALBUTEROL 2.5 MG/3 ML NEB SOL NEB PRN (01:54)
[2024-03-10] MEDS: lisinopriL 5 MG TAB FT SCH (08:09)
[2024-03-10] MEDS: AMLODIPINE 10 MG TAB FT SCH (08:10)
[2024-03-10] MEDS: THIAMINE HCL 100 MG TABLET PO SCH (08:10)
[2024-03-10 08:19] LABS: Anion Gap 7.9 mEq/L (5.0-15.0); Potassium 3.9 mEq/L (3.5-5.1)
[2024-03-10 08:36] LABS: Absolute Basophils 0.1 K/uL (0-0.5); Absolute Eosinophils 0.1 K/uL (0-0.5); Absolute Lymphocytes (CBC) 0.9 K/uL (0.7-4.9); Absolute Monocytes 0.6 K/uL (0.1-1.3); Absolute Neutrophil 6.8 K/uL (1.8-8.0); Basophils % 0.9 % (0-1.3); Eosinophils % 1.1 % (0-4.4); Hematocrit 32.9 % (36.0-45.0); Hemoglobin 11.3 g/dL (12.0-15.0); Lymphocytes % 10.4 % (15.3-44.8); MCH 32.5 pg (27.0-35.0); MCHC 34.3 g/dL (32.0-36.0); MCV 94.8 fL (80-100); MPV 8.1 fL (7.6-11.3); Monocytes % 6.8 % (3.3-12.3); Neutrophils % 80.8 % (41.7-73.7); Nucleated Red Blood Cells % 0.1 % (0-0); Platelets 296 thou/uL (152-406); RBC Red Blood Cell Count 3.48 M/uL (3.86-4.86); Red Cell Distribution Width 12.7 % (12.1-15.2)
[2024-03-10] MEDS: CEFTRIAXONE 1,000 MG in NA CHLORIDE 0.9% 50 ML IVPB SCH (09:09)
[2024-03-10] MEDS: LORazepam 2 MG/ML VIAL IV PRN (12:23)
--- NOTE | 2024-03-10 13:47 | P.PN ---
Subjective Date of Service: 03/10/24 Chief Complaint: Fall/ Seizure / Patient is nonverbal. Nursing staff report patient has been attempting to leave, she refused her medications, took out an IV line. No reported diarrhea or vomiting. No seizures. She was seen sitting on her bed during my examination. Physical Examination - Vital Signs Temperature: 97.8 F Blood Pressure: 176/109 Pulse: 86 Respirations: 14 Pulse Ox (%): 95 Assessment And Plan - Plan Physical examination General: Awake, NAD, Non-verbal Neck: Supple, no elevated JVD Heart: Heart sounds 1 and 2 normal, regular rhythm, normal rate, no pedal edema Lungs: Clear to auscultation bilaterally, adequate breath sounds bilaterally, no rhonchi or crackles. Abdomen: Soft, nondistended, nontender, normal bowel sounds. Extremities: No tenderness, contracted right upper extremity, Skin: Normal skin turgor, no rash, no nodules or ulcers. Neuro: Right-sided weakness. Nonverbal. Psychiatry: No agitation. Assessment and plan Hyponatremia Hypochloremia Dehydration Sodium level improved. Hyponatremia resolved. Discontinue IV fluid. Monitor neuro vital signs Fall Seizure-like activity CT head negative for any acute changes. Patient with a history of CVA Case discussed with neurology Dr. Ragsdale who recommended initiating Keppra. Continue Keppra Follow EEG result Neurochecks. Leukocytosis Acute cystitis without hematuria Leukocytosis resolved Urine culture is growing gram-negative rods Continue Rocephin Follow urine culture. Hypertension Continue home antihypertensive Hyperlipidemia Continue statin DVT prophylaxis: Lovenox Advanced directive full code
[2024-03-10] MEDS: BACLOFEN 10 MG TAB PO ONE (15:48)
[2024-03-10] MEDS: METOPROLOL TAR 25 MG TAB PO ONE (15:48)
[2024-03-10] MEDS: GABAPENTIN 100 MG CAP PO ONE (15:50)
[2024-03-10] MEDS: levETIRAcetam 500 MG/5 ML OSYR FT ONE (15:51)
[2024-03-11 06:27] LABS: Magnesium 1.8 mg/dL (1.6-2.4); Phosphorus 3.2 mg/dL (2.5-4.9)
[2024-03-11 08:12] VITALS: TEMP 98.2
[2024-03-11] MEDS: MAGNESIUM SULFATE 1 gm IVPB 1 GM/100 ML BAG IV ONE (09:17)
--- NOTE | 2024-03-11 10:58 | P.DS ---
Admission Date: 03/08/24 Discharge Date: 03/11/24 Disposition: TRANSFER TO [facility] Discharge Condition: FAIR Reason for Admission: Fall/ Seizure / Brief History of Present Illness: 68 yrs old Female detention resident from [facility] with past medical history of dementia, CVA with right-sided weakness, right upper extremity contracture, COPD, anemia, hypertension, hyperlipidemia who was brought to ER due to a fall in the detention. Patient had witnessed fall. According to report, she fell from a wheelchair and had a laceration on the face, seizure-like activity prior to the fall reported. No reported history of seizures. Her facial laceration was repaired by the ER physician and was noted to have hyponatremia and was admitted for further management. Hospital Course: Patient was admitted to the medical floor and the following medical problems addressed: Hyponatremia Hypochloremia Dehydration Sodium level improved with IV normal saline. Hyponatremia resolved. Fall Seizure-like activity CT head negative for any acute changes. Patient with a history of CVA with high risk for seizures. Case discussed with neurology Dr. Ragsdale who recommended initiating Keppra. Patient started on Keppra 500 mg twice daily Follow EEG result Leukocytosis Acute cystitis without hematuria Leukocytosis resolved Urine culture is growing gram-negative rods Patient treated with IV Rocephin and discharged with fosfomycin given patient's increased risk for MDR bacteria Abnormal behavior Patient was defiant, refusing medications and lab work and was asking all the time to be discharged back to the [place] facility. According to the nursing staff patient became more compliant and agreed to take her medications when she was told she may discharge today Hypertension Continued home antihypertensive Hyperlipidemia Continued statin Vital Signs/Physical Exam: Temp Pulse Resp BP Pulse Ox 98.2 F 75 14 171/97 H 97 03/11/24 08:00 03/11/24 08:00 03/11/24 08:00 03/11/24 08:00 03/11/24 08:00 General: In no apparent distress, Other (Awake) HEENT: Mucous membr. moist/pink Neck: Supple, JVD not distended Respiratory: Clear to auscultation bilaterally, Normal air movement Cardiovascular: Regular rate/rhythm, Normal S1 S2 Gastrointestinal: Normal bowel sounds, Soft and benign, Non-distended, No tenderness, Other (PEG tube) Musculoskeletal: No swelling, No tenderness, Contractures (Right upper extremity) Integumentary: No cyanosis Neurological: Other (Right-sided weakness.) Laboratory Data at Discharge: WBC 8.40 thou/uL (4.3-10.9) 03/10/24 08:20 Hgb 11.3 g/dL (12.0-15.0) L D 03/10/24 08:20 Hct 32.9 % (36.0-45.0) L 03/10/24 08:20 Plt Count 296 thou/uL (152-406) 03/10/24 08:20 Sodium 138 mEq/L (136-145) 03/11/24 05:50 Potassium 4.0 mEq/L (3.5-5.1) 03/11/24 05:50 BUN 17 mg/dL (7-18) 03/11/24 05:50 Creatinine 0.59 mg/dL (0.55-1.02) 03/11/24 05:50 Glucose 91 mg/dL (74-106) 03/11/24 05:50 Phosphorus 3.2 mg/dL (2.5-4.9) 03/11/24 05:50 Magnesium 1.8 mg/dL (1.6-2.4) 03/11/24 05:50 Total Bilirubin 0.4 mg/dL (0.2-1.0) 03/09/24 05:55 AST 26 U/L (15-37) 03/09/24 05:55 ALT 33 U/L (13-56) 03/09/24 05:55 Alkaline Phosphatase 83 U/L (45-117) 03/09/24 05:55 Home Medications: Budesonide/Formoterol Fumarate [Symbicort 160-4.5 Mcg Inhaler] 2 puff IH BID #1 hfa.aer.ad 04/11/16 Amlodipine [Norvasc*] 10 mg FT DAILY 03/08/24 Aspirin [Aspirin EC 81 MG] 81 mg FT DAILY 03/08/24 Atorvastatin Calcium [Lipitor] 80 mg FT BEDTIME 03/08/24 Baclofen 10 mg FT TID 03/08/24 Docusate [Colace Cap*] 100 mg FT BID 03/08/24 Famotidine 20 mg FT BID 03/08/24 Ferrous Sulfate 7 ml FT BID 03/08/24 Gabapentin [Neurontin*] 100 mg FT TID 03/08/24 Ipratropium/Albuterol Sulfate [Iprat-Albut 0.5-3(2.5) mg/3 ml] 3 ml IH Q6H 03/08/24 Lisinopril [Zestril] 2.5 mg PO DAILY 03/09/24 Melatonin 5 mg PO BEDTIME 03/09/24 Metoprolol Tartrate 25 mg PO BID 03/09/24 Polyethylene Glycol 3350 [Miralax] 17 gm PO BID 03/09/24 Sennosides [Senna] 8.6 mg PO BID 03/09/24 Thiamine HCl 100 mg PO DAILY 03/09/24 Ensure Enlive 237 ml PO BID can 03/11/24 Fosfomycin Tromethamine 3 gm PO Q48H #2 packet 03/11/24 levETIRAcetam [Keppra] 5 ml PO BID #300 ml 03/11/24 New Medications: Fosfomycin Tromethamine 3 gm PO Q48H #2 packet levETIRAcetam [Keppra] 5 ml PO BID #300 ml Physician Discharge Instructions: resident: [address] [address] P:[phone] F:[phone] F: [phone] Diet: Tube feed Activity: Fall precautions Followup: Quinton Reynolds DO [Primary Care Provider] - 1-2 Weeks (Call for appointment ) Time spent managing pt's care (in minutes): 38
[2024-03-11 11:40] VITALS: BP 142/81
[2024-03-11 12:44] VITALS: O2SAT 95
[2024-03-11] MEDS ORDERED: AMLODIPINE 10 MG TAB PO ONE (15:49)
[2024-03-11] MEDS ORDERED: lisinopriL 5 MG TAB PO ONE (15:51)
--- NOTE | 2024-03-13 09:57 | EEG ---
CHART: [id number] TEST ID#: [id number] DATE OF STUDY: 03-09-2024 THE EEG WAS RECORDED PORTABLE IN THE PATIENT'S ROOM ON A 17 CHANNEL MACHINE. ELECTRODES WERE APPLIED IN THE USUAL MANNER USING THE INTERNATIONAL 10-20 SYSTEM. THE WAKING BACKGROUND RHYTHM IN THIS RECORD CONSISTS OF WELL DEVELOPED AND WELL ORGANIZED WAVES OF 10 HZ., MAXIMAL IN THE POSTERIOR HEAD REGIONS WHICH ATTENUATE NORMALLY WITH EYE OPENING. MODERATE VOLTAGE 1.5-3 HZ MIXED WITH LOW TO MODERATE VOLTAGE 4-6 HZ ACTIVITY IS EXPRESSED IN THE LEFT FRONTAL, CENTRAL AND TEMPORAL REGIONS. SHARP WAVES ARE EXPRESSED IN THE LEFT CENTROTEMPORAL REGION. THERE ARE NO FOCAL OR LATERALIZING FEATURES. NO EPILEPTIFORM ACTIVITY APPEARS. SLEEP DID NOT OCCUR. HYPERVENTILATION WAS NOT PERFORMED. PHOTIC STIMULATION PRODUCED NO DRIVING BILATERALLY. IMPRESSION: THIS IS AN ABNORMAL AWAKE ROUTINE EEG DUE TO THE PRESENCE OF LEFT CENTROTEMPORAL SHARP WAVES SUPERIMPOSED AND MODERATE VOLTAGE SLOW (DELTA AND THETA) ACTIVITY IN THE LEFT FRONTO CENTRAL AND TEMPORAL REGIONS. THESE FINDINGS INDICATE THE PRESENCE OF AN EPILEPTIFORM LESION IN THE LEFT CENTROTEMPORAL REGION. NO ELECTROGRAPHIC SEIZURES OCCURRED DURING THIS STUDY.
== END 2024-03-11 14:44 | DRG 988 ==
LOC: ER 17:26 → 4TH 20:45
PROVIDERS: ADMIT Family Medicine; ATTEND Internal Medicine
PROC: 0JQ10ZZ Repair Face Subcutaneous Tissue and Fascia, Open Approach (ICD-10-PCS; principal; 2024-03-08)
DX: E87.1 Hypo-osmolality and hyponatremia (principal); I69.351 Hemiplegia and hemiparesis following cerebral infarction affecting right dominant side; N30.00 Acute cystitis without hematuria; E78.00 Pure hypercholesterolemia, unspecified; E87.8 Other disorders of electrolyte and fluid balance, not elsewhere classified; I10 Essential (primary) hypertension; J44.9 Chronic obstructive pulmonary disease, unspecified; E86.0 Dehydration; G89.29 Other chronic pain; M54.9 Dorsalgia, unspecified; G30.9 Alzheimer's disease, unspecified; F02.80 Dementia in other diseases classified elsewhere, unspecified severity, without behavioral disturbance, psychotic disturbance, mood disturbance, and anxiety; Z93.1 Gastrostomy status; Z88.0 Allergy status to penicillin; Z98.51 Tubal ligation status; Z79.82 Long term (current) use of aspirin; Z87.891 Personal history of nicotine dependence; W05.0XXA Fall from non-moving wheelchair, initial encounter; Y92.099 Unspecified place in other non-institutional residence as the place of occurrence of the external cause; Y99.9 Unspecified external cause status; Y93.9 Activity, unspecified
CPT/HCPCS: 12011; 36415; 70450; 71045; 80048; 80053; 81001; 83735; 84100; 85025; 87086; 87088; 92610; 94640; 94760; 95816; 96361; 96374; 96375; 99285; J0360; J0696; J1650; J1953; J3475; J7030; J7613